=== PATIENT | female | born 1960 | race Caucasian/White ===

== ENCOUNTER → 2017-09-10 12:35 | Outpatient (CLI) | payer OTHER, SELFPAY ==
[2017-09-10 14:11] LABS: Absolute Lymphocyte Count 1.73 X10^3/ul (0.83-4.51); Basophil# 0.03 X10^3/uL; Basophil% 0.5 % (0-1); Eosinophil# 0.06 X10^3/uL; Hemoglobin 13.9 g/dl (12.0-15.0); Lymphocyte # 1.73 X10^3/ul (4.0); Lymphocyte % 28.1 % (19-41); Mean Corp Hgb Conc 33.1 g/gl (32-36); Mean Corpuscular Hgb 29.6 pg (27.0-32.0); Mean Corpuscular Volume 89.4 fL (81-99); Mean Platelet Vol. 10.2 fl (6.2-12.0); Monocyte# 0.36 X10^3/uL; Monocyte% 5.8 % (0-10); Neutrophil # 3.97 X10^3/uL (2.7-7.7); Neutrophil % 64.4 % (47-70); Platelet Count 190 K/mm3 (150-450); RBC Distribution Width CV 12.4 % (11.6-14.6); RBC Distribution Width SD 40.2 fl (35.1-43.9); White Blood Count 6.2 K/mm3 (4.4-11.0)
[2017-09-10 14:13] LABS: POSITIVE COUNT NO; POSITIVE DIFFERENTIAL NO; POSITIVE MORPHOLOGY NO
[2017-09-10 14:31] LABS: ALB/GLOB Ratio 1.1 RATIO (0.9-2.4); AST(SGOT) 16 U/L (15-37); Alanine Aminotransfer ALT/SGPT 35 U/L (13-56); Albumin, Serum 3.8 g/dL (3.2-5.0); Alkaline Phosphatase 91 U/L (45-117); Anion Gap 6 (5-15); BUN 14 mg/dL (7-18); BUN/Creat Ratio 20.5 RATIO (10-20); Calcium,Total 8.5 mg/dL (8.5-10.1); Chloride 108 mmol/L (98-107); Creatinine, Serum 0.68 mg/dL (0.55-1.02); EST Glomerular Filtration Rate 95 mL/min (>60); Est Glom Filt Rate - Afr Amer 115 mL/min (>60); Globulin 3.4 g/dL (2.2-4.2); Glucose 77 mg/dL (74-106); Magnesium 2.2 mg/dL (1.6-2.6); Potassium 3.8 mmol/L (3.5-5.1); Protein, Total 7.2 g/dL (6.4-8.2); Sodium Level 141 mmol/L (136-145); Thyroid Stim Hormone (TSH) 0.03 uIU/mL (0.358-3.74)
[2017-09-10 14:32] LABS: T4 Free Direct 1.41 ng/dL (0.76-1.46)
== END ==
PROVIDERS: Family Provider Family Medicine; PCP Family Medicine; Visit Provider Family Medicine
DX: E03.9 Hypothyroidism, unspecified (principal); R00.2 Palpitations
CPT/HCPCS: 36415; 80053; 83735; 84439; 84443; 84481; 85025

== ENCOUNTER → 2018-05-27 08:52 | Outpatient (CLI) | payer OTHER, SELFPAY ==
[2018-05-27 09:25] LABS: Absolute Lymphocyte Count 1.41 X10^3/ul (0.83-4.51); Absolute Neutrophil Count 2.3 X10^3/uL (2.0-7.7); Basophil# 0.04 X10^3/uL; Eosinophil# 0.08 X10^3/uL; Eosinophils% 1.9 % (0-5); Hematocrit 44.4 % (37-47); Hemoglobin 14.4 g/dl (12.0-15.0); Lymphocyte # 1.41 X10^3/ul (4.0); Lymphocyte % 34.3 % (19-41); Mean Corp Hgb Conc 32.4 g/gl (32-36); Mean Corpuscular Hgb 30.3 pg (27.0-32.0); Mean Corpuscular Volume 93.5 fL (81-99); Mean Platelet Vol. 9.9 fl (6.2-12.0); Monocyte# 0.24 X10^3/uL; Monocyte% 5.8 % (0-10); Neutrophil # 2.33 X10^3/uL (2.7-7.7); Neutrophil % 56.8 % (47-70); Platelet Count 177 K/mm3 (150-450); RBC Distribution Width CV 12.6 % (11.6-14.6); RBC Distribution Width SD 42.3 fl (35.1-43.9); Red Blood Count 4.75 M/mm3 (4.2-5.4); White Blood Count 4.1 K/mm3 (4.4-11.0)
[2018-05-27 09:28] LABS: POSITIVE COUNT NO; POSITIVE DIFFERENTIAL NO; POSITIVE MORPHOLOGY NO
[2018-05-27 11:04] LABS: Vitamin B12 > 2000 pg/mL (211-911); Vitamin D,25 Hydroxy 30.3 ng/mL (29.95-100.01)
[2018-05-27 11:05] LABS: Anion Gap 8 (5-15); BUN 15 mg/dL (7-18); BUN/Creat Ratio 19.3 RATIO (10-20); Calcium,Total 8.7 mg/dL (8.5-10.1); Chloride 108 mmol/L (98-107); Cholesterol 186 mg/dL (200); Creatinine, Serum 0.78 mg/dL (0.55-1.02); EST Glomerular Filtration Rate 82 mL/min (>60); Est Glom Filt Rate - Afr Amer 99 mL/min (>60); Glucose 79 mg/dL (74-106); High Density Lipoprotein 86 mg/dL; Potassium 4.1 mmol/L (3.5-5.1); Sodium Level 146 mmol/L (136-145); T4 Free Direct 0.99 ng/dL (0.76-1.46); Thyroid Stim Hormone (TSH) 3.97 uIU/mL (0.358-3.74); Triglycerides 60 mg/dL; Very Low Density Lipoprotein 12 mg/dL (5-40)
== END ==
PROVIDERS: Family Provider Family Medicine; PCP Family Medicine; Referring Provider Family Medicine; Visit Provider Family Medicine
DX: Z00.00 Encounter for general adult medical examination without abnormal findings (principal); E53.8 Deficiency of other specified B group vitamins; E03.9 Hypothyroidism, unspecified
CPT/HCPCS: 36415; 80048; 80061; 82306; 82607; 82746; 84439; 84443; 85025

== ENCOUNTER → 2020-10-01 08:16 | Outpatient (CLI) | payer OTHER, SELFPAY ==
[2020-10-01 09:05] LABS: Hematocrit 42.9 % (37-47); Hemoglobin 14.1 g/dL (12.0-15.0)
[2020-10-01 09:29] LABS: Vitamin B12 > 2000 pg/mL (211-911)
[2020-10-01 10:21] LABS: Cholesterol 204 mg/dL (200); Creatinine, Serum 0.74 mg/dL (0.55-1.02); EST Glomerular Filtration Rate 85 mL/min (>60); Est Glom Filt Rate - Afr Amer 103 mL/min (>60); High Density Lipoprotein 109 mg/dL; T4 Free Direct 0.92 ng/dL (0.76-1.46); Thyroid Stim Hormone (TSH) 2.68 uIU/mL (0.358-3.74); Triglycerides 30 mg/dL; Very Low Density Lipoprotein 6 mg/dL (5-40)
== END ==
PROVIDERS: PCP Family Medicine; Referring Provider Family Medicine; Visit Provider Family Medicine
DX: Z00.00 Encounter for general adult medical examination without abnormal findings (principal); E03.9 Hypothyroidism, unspecified; E53.8 Deficiency of other specified B group vitamins
CPT/HCPCS: 36415; 80061; 82565; 82607; 82746; 84439; 84443; 85014; 85018

== ENCOUNTER → 2021-09-30 | Outpatient (CLI) | payer OTHER, SELFPAY | END | disposition home or self-care (01) | LOC: LABSPEC 10:02 | PROVIDERS: PCP Family Medicine; Referring Provider Family Medicine; Visit Provider Family Medicine | DX: Z20.822 Contact with and (suspected) exposure to COVID-19 (principal) | CPT/HCPCS: 87635; U0003; U0005 ==

== ENCOUNTER → 2021-10-02 | Outpatient (CLI) | payer OTHER, SELFPAY ==
[2021-10-02 16:42] LABS: Vitamin B12 421 pg/mL (211-911)
== END | disposition home or self-care (01) ==
PROVIDERS: PCP Family Medicine; Visit Provider Family Medicine
DX: Z00.00 Encounter for general adult medical examination without abnormal findings (principal); E53.8 Deficiency of other specified B group vitamins; E03.9 Hypothyroidism, unspecified
CPT/HCPCS: 36415; 82607; 84443

== ENCOUNTER 2021-12-14 14:27 | Emergency (ER) | payer OTHER, SELFPAY ==
[2021-12-14 14:28] VITALS: BP 106/73; PULSE 76; RESP 16; TEMP 36.4; O2SAT 100; BMI 19.3
--- NOTE | 2021-12-14 16:03 | EX.ED.VIS.EY ---
HPI History of Present Illness Chief Complaint: Eye Problem Informant: patient Associated Symptoms History of injury: No Visual correction: None Narrative Narrative: Patient with a couple of sore red areas on her right scalp and now her right upper face/upper eyelid. This started yesterday and is worse today. No injury, no obvious reason for this, no topicals to this area. They are sore and painful, there is no pruritus. states they are outside a lot, and wondering if this could be something related to that. She denies any eye pain or vision changes or excess tearing, and no ear pain or symptoms. No fevers or chills or other systemic symptoms. PFSH PFSH no medical history Home Medications cephalexin 500 mg capsule 500 mg PO Q6 #28 CAPSULES 12/14/21 [Rx Last Taken Unknown] valacyclovir 1 gram tablet 1,000 mg PO TID #21 tabs 12/14/21 [Rx Last Taken Unknown] Allergy/AdvReac Type Severity Reaction Status Date / Time dust Allergy Rash Uncoded 12/14/21 14:30 Social History Smoking Status: Never smoker ROS ROS ED Constitutional Constitutional ED: Denies fever(s) Eyes Eyes: Denies blurry vision, change in vision or diplopia ENT ENT ED: Reports as per HPI, facial pain and other Details: scalp pain ; Denies ear pain, mouth pain, rhinorrhea or sore throat Cardiovascular Cardiovascular: Denies chest pain or palpitations Respiratory/Chest Respiratory/Chest: Denies cough or dyspnea Gastrointestinal Gastrointestinal: Denies abdominal pain, nausea or vomiting Integumentary Reports rash; Denies abscess Neurologic Neurologic: Denies headache(s), paresthesias or weakness EXAM Physical Exam Const Vital Signs: 12/14/21 14:28 Temperature 97.5 F L Temperature Source Temporal Pulse Rate 76 Respiratory Rate 16 Blood Pressure 106/73 Blood Pressure Mean 84 Pulse Ox 100 Oxygen Delivery Method Room Air Positive well nourished and well developed General Appearance ED: well developed and NAD HEENT HEENT Narrative: Several tender erythematous lumps/raised lesions. Mildly tender. In V1 distribution of ophthalmologic nerve, progressing into right parietal scalp. No external ear or canal involvement. No gross abnormality of the right eye. Eyes Eyes Narrative: PERRL, EOMI. Normal conjunctive a bilaterally. Lids normal bilaterally, no hordeolum. Neck no lymphadenopathy Resp normal respiratory effort Neuro oriented x3, CN's II-XII intact bilaterally, moves all extremities, no sensory deficits noted and gait normal Skin Skin Narrative: Several raised erythematous mildly tender lumps right scalp and into right forehead, at the junction of the lateral facial skin and the upper eyelid but it does not involve the eyelid proper. 1 of these lesions in the scalp has some mild scabbing on it. No abscess. No pustules or vesicles. No petechia or purpura. No bullae. MDM MDM MDM Narrative Medical decision making narrative: My suspicion is that this is zoster. She had chickenpox when she was small and she has not had the shingles vaccine. She asked me if stress could cause this. She does not have an obvious cause, so I am covering her with antibiotics because this is early, I do not think this is fungal, I am prescribing her valacyclovir as well but not prednisone. She understands all this and will follow-up. Discharge Plan Triage Chief Complaint: Eye Problem ED Provider: Kenji Caro Dx/Rx/DC Orders Clinical Impression: Shingles Instructions: ED Shingles (Herpes Zoster) Prescriptions: New valacyclovir 1 gram tablet 1,000 mg PO TID Qty: 21 0RF cephalexin [cephalexin] 500 mg capsule 500 mg PO Q6 Qty: 28 0RF Primary Care Provider: Mani Starr Referrals: Mani Starr MD [Primary Care Provider] - 3-5 Days if not improving (for reevaluation) Sixto Sanderson MD [Med Staff - Active Staff] - As Needed (If you start having any eye pain or vision problems, make an appointment with this journeyman patternmaker for further evaluation, as this would more likely be a version of shingles that could affect your eye) Disposition Disposition: Home, Self Care
[2021-12-14] MEDS: Acyclovir 800 MG Tablet PO (16:32)
[2021-12-14] MEDS: Cephalexin 250 MG Capsule 500 MG PO (16:32)
== END 2021-12-14 16:43 | disposition home or self-care (01) ==
PROVIDERS: Emergency Provider Emergency Medicine; PCP Family Medicine; Visit Provider Emergency Medicine
DX: B02.9 Zoster without complications (principal)
CPT/HCPCS: 99284

== ENCOUNTER 2022-01-22 13:36 | Emergency (ER) | payer OTHER, SELFPAY ==
[2022-01-22 13:37] VITALS: BP 119/79; PULSE 89; RESP 14; TEMP 36.8; O2SAT 100; BMI 19.5
--- NOTE | 2022-01-22 13:54 | EX.ED.DYSGE1 ---
HPI History of Present Illness Chief Complaint: Anxiety Narrative Narrative: 61-year-old female presenting with anxiety. She states has had it for the past month since having shingles recently. She was not on any steroids that she knows of she finished of course of valacyclovir and Keflex for this. She is on hydroxyzine currently from her primary care physician to help with her anxiety. She states that it was getting bad earlier and if she arrived to the ER her primary care physician's nurse called her and stated they will get a call something else in for her. She does not know what this is. She has taken her hydroxyzine as prescribed. She states she does not have a history of anxiety in the past. She denies chest pain or shortness of breath. She denies fever, chills, cough. PFSH PFSH Home Medications hydroxyzine HCl 25 mg tablet 25 mg PO TID PRN PRN Anxiety 01/22/22 [History Last Taken Unknown] Allergy/AdvReac Type Severity Reaction Status Date / Time dust Allergy Rash Uncoded 01/22/22 13:37 Surgical History Hx of tonsillectomy Social History Smoking Status: Never smoker ROS ROS ED Constitutional Constitutional ED: Denies chills or fever(s) Eyes Eyes: Denies change in vision ENT ENT ED: Denies rhinorrhea or sore throat Cardiovascular Cardiovascular: Denies chest pain or palpitations Respiratory/Chest Respiratory/Chest: Denies cough or dyspnea Gastrointestinal Gastrointestinal: Denies abdominal pain or constipation Genitourinary Genitourinary ED: Denies dysuria or hematuria Musculoskeletal Musculoskeletal: Denies arthralgias or back pain Integumentary Denies abscess or Abrasions Neurologic Neurologic: Denies headache(s) or paresthesias Psychiatric Psychiatric: Reports anxiety; Denies depression, suicidal ideation or suicidal thoughts EXAM Physical Exam Const Vital Signs: 01/22/22 13:37 Temperature 98.2 F Temperature Source Temporal Pulse Rate 89 Respiratory Rate 14 Blood Pressure 119/79 Blood Pressure Mean 92 Pulse Ox 100 Oxygen Delivery Method Room Air Positive well nourished General Appearance ED: NAD; Negative for pallor HEENT Reports moist mucous membranes Eyes PERRL and EOMs intact bilaterally Neck no lymphadenopathy Chest Wall inspection of chest normal and palpation of chest normal Resp normal respiratory effort Auscultation: Negative for rales, rhonchi or wheezes Cardio regular rate and regular rhythm GI normal to inspection, nondistended, normoactive bowel sounds Auscultation: normoactive bowel sounds Extremity normal to inspection Neuro oriented x3 and CN's II-XII intact bilaterally Sensorium / Orientation: alert Psych mental status grossly normal Skin no rashes or lesions noted and no wounds General Skin Exam: Negative for jaundice or pallor MDM MDM MDM Narrative Medical decision making narrative: Patient presenting with anxiety. This is a known diagnosis. She was treated with either PCP with hydroxyzine 25 mg p.o. 3 times daily. She states is not helping. On arrival she had a call from her primary care physician's nurse saying that they called her something in. I spoke with Dr. Mani Starr who states she called her in [place] with tapering doses and he recommended her to start that. I do not believe she needs anything acutely. She is amenable to this plan. She is discharged stable condition. Impression: 1. Anxiety Lab Data Attestation: I reviewed the patient's lab results. Discharge Plan Triage Chief Complaint: Anxiety ED Provider: Boone Tong Dx/Rx/DC Orders Instructions: ED Anxiety Reaction Prescriptions: No Action hydroxyzine HCl 25 mg tablet 25 mg PO TID PRN PRN (Reason: Anxiety) Primary Care Provider: Mani Starr Referrals: Mani Starr MD [Primary Care Provider] - Disposition Disposition: Home, Self Care
--- NOTE | 2022-01-22 14:29 | CM.ED ---
SW Note Referral Source: Case Find Referral Reason: Anxiety SW met with patient and her family members in the room. Patient gave this editorial writer verbal consent to speak to her in the presence of her family. SW provided patient with list of counseling agencies and information on [facility] PHP/IOP program. Patient provided with PHP/IOP brochure. No further issues or concerns voiced. Family did not voice any additional issues or concerns. SW remains available if further needs arise. Plan: Home with Resources Manuela ANGULO
== END 2022-01-22 14:38 | disposition home or self-care (01) ==
PROVIDERS: Emergency Provider Student in an Organized Health Care Education/Training Program; PCP Family Medicine; Visit Provider Student in an Organized Health Care Education/Training Program
DX: F41.9 Anxiety disorder, unspecified (principal); Z79.899 Other long term (current) drug therapy
CPT/HCPCS: 99282

== ENCOUNTER → 2022-02-05 | Outpatient (CLI) | payer OTHER, SELFPAY ==
[2022-02-05 15:13] LABS: Absolute Lymphocyte Count 0.98 X10^3/uL (0.83-4.51); Absolute Neutrophil Count 3.8 X10^3/uL (2.0-7.7); Basophil# 0.04 X10^3/uL; Basophil% 0.8 % (0-1); Eosinophil# 0.03 X10^3/uL; Eosinophils% 0.6 % (0-5); Hematocrit 43.9 % (37-47); Hemoglobin 14.2 g/dL (12.0-15.0); Lymphocyte # 0.98 X10^3/ul (0.83-4.51); Lymphocyte % 18.8 % (19-41); Mean Corp Hgb Conc 32.3 g/dL (32-36); Mean Corpuscular Hgb 31.2 pg (27.0-32.0); Mean Corpuscular Volume 96.5 fL (81-99); Mean Platelet Vol. 10.2 fl (6.2-12.0); Monocyte# 0.37 X10^3/uL; Monocyte% 7.1 % (0-10); NRBC Flagged by Analyzer 0 % (0-5); Neutrophil # 3.76 X10^3/uL (2.7-7.7); Neutrophil % 72.3 % (47-70); Platelet Count 224 K/mm3 (150-450); RBC Distribution Width CV 13.2 % (11.6-14.6); RBC Distribution Width SD 47.5 fl (35.1-43.9); Red Blood Count 4.55 M/mm3 (4.2-5.4); White Blood Count 5.2 K/mm3 (4.4-11.0)
[2022-02-05 15:27] LABS: Vitamin B12 852 pg/mL (211-911)
[2022-02-05 17:02] LABS: ALB/GLOB Ratio 1.1 RATIO (0.9-2.4); AST(SGOT) 20 U/L (15-37); Alanine Aminotransfer ALT/SGPT 43 U/L (13-56); Albumin, Serum 3.8 g/dL (3.2-5.0); Alkaline Phosphatase 78 U/L (45-117); Anion Gap 7 (5-15); BUN 13 mg/dL (7-18); BUN/Creat Ratio 19.2 RATIO (10-20); Chloride 102 mmol/L (98-107); Creatinine, Serum 0.68 mg/dL (0.55-1.02); EST Glomerular Filtration Rate 95 mL/min (>60); Est Glom Filt Rate - Afr Amer 114 mL/min (>60); Folates, (Folic Acid) > 100.00 ng/mL (3.1-55.4); Globulin 3.5 g/dL (2.2-4.2); Glucose 88 mg/dL (74-106); Potassium 3.9 mmol/L (3.5-5.1); Protein, Total 7.3 g/dL (6.4-8.2); Sodium Level 137 mmol/L (136-145); T4 Free Direct 1.36 ng/dL (0.76-1.46); Thyroid Stim Hormone (TSH) 3.47 uIU/mL (0.358-3.74)
== END | disposition home or self-care (01) ==
LOC: MTLAB 12:57
PROVIDERS: PCP Family Medicine; Referring Provider Family Medicine; Visit Provider Family Medicine
DX: F41.9 Anxiety disorder, unspecified (principal); E03.9 Hypothyroidism, unspecified; E53.8 Deficiency of other specified B group vitamins
CPT/HCPCS: 36415; 80053; 82607; 82746; 84439; 84443; 85025

== ENCOUNTER → 2022-02-27 | Outpatient (CLI) | payer OTHER, SELFPAY ==
[2022-03-02 17:07] LABS: Anti-Centromere B Ab <0.2 AI (0.0-0.9); Anti-Chromatin <0.2 AI (0.0-0.9); Anti-Jo <0.2 AI (0.0-0.9); Anti-Scleroderma-70 AB <0.2 AI (0.0-0.9); RNP Ab <0.2 AI (0.0-0.9); SJOGREN'S Anti-SS-A test < 0.2 AI (0.0-0.9); SJOGREN'S Anti-SS-B test < 0.2 AI (0.0-0.9); Smith Ab <0.2 AI (0.0-0.9)
[2022-03-02 20:43] LABS: Anti-dsDNA Ab 1 IU/mL (0-9)
[2022-03-03 22:06] LABS: Cytoplasmic Ab (C-ANCA) <1:20 titer (Neg:<1:20); Lyme IgG P18 Ab Absent (.); Lyme IgG P23 Ab Absent (.); Lyme IgG P28 Ab Absent (.); Lyme IgG P30 Ab Absent (.); Lyme IgG P39 Ab Absent (.); Lyme IgG P41 Ab Present (.); Lyme IgG P45 Ab Absent (.); Lyme IgG P58 Ab Absent (.); Lyme IgG P66 Ab Absent (.); Lyme IgG P93 Ab Absent (.); Lyme IgM P23 Ab Absent (.); Lyme IgM P39 Ab Absent (.); Lyme IgM P41 Ab Absent (.)
[2022-03-04 09:32] LABS: Lyme IgG WB Interpretation Negative (.); Lyme IgM WB Interpretation Negative (.); Perinuclear Ab (P-ANCA) <1:20 titer (Neg:<1:20)
== END | disposition home or self-care (01) ==
LOC: MTLAB 13:51
PROVIDERS: PCP Family Medicine; Referring Provider Family Medicine; Visit Provider Family Medicine
DX: T14.90XA Injury, unspecified, initial encounter (principal); W57.XXXA Bitten or stung by nonvenomous insect and other nonvenomous arthropods, initial encounter
CPT/HCPCS: 36415; 86140; 86225; 86235; 86256; 86617

== ENCOUNTER 2022-03-12 08:00 | Outpatient (RCR) | payer OTHER, SELFPAY ==
--- NOTE | 2022-03-12 10:10 | BH.SGPN.GN ---
Behaviors/Verbalizations/Mental Status: [] Eye contact is good. Motor activity is appropriate. Appearance is casual. Speech is Appropriate. Mood is anxious. Affect is constricted. Thoughts are linear and logical. No evidence of psychosis. Client Response/Progress/Benefit: [] Pt was an active participant in group discussion and activity. Attentive during psychoeducation. Along with peers was able to identify barriers to taking action on her mental health which included: fear of failure, the unknown, change, one's environment, past negative experiences, being passive, and fear of vulnerability. Identified several symptoms and stressors that she feels are holding her back from progress such as envy of where others are at in life, anxiety, fear, isolation, and desire of wanting to be normal again. Benefited from increased self-awareness of obstacles. Will continue in IOP to improve daily functioning, decrease anxiety, and prevent decompensation.
--- NOTE | 2022-03-12 11:15 | BH.SGPN.GN ---
Behaviors/Verbalizations/Mental Status: []Client alert and oriented, casually dressed and groomed. Eye contact good. Motor activity appropriate. Speech within normal limits. Affect constricted, mood anxious. Thoughts linear, logical, no signs of hallucinations or delusions. Client Response/Progress/Benefit: []Client responded well to session, taking notes and participating in worksheet discussion. Client connected with the zones of action/change and reported that making sustainable change comes from stepping out of one?s comfort zone into the learning zone. Client set a goal to gain control over her negative thinking. Client reported her goal is to identify a positive affirmation every morning when she wakes up. Client identified setting alarm, list benefits of goal, and list consequences of not accomplishing goal as supports to help her accomplish goal. Appeared to benefit from identifying a small goal to benefit mental health. Will continue IOP tx to increase healthy coping, decrease anxiety, and prevent decompensation.
--- NOTE | 2022-03-17 09:05 | BH.SGPN.GN ---
Behaviors/Verbalizations/Mental Status: [] Eye contact is good. Motor activity is appropriate. Appearance is casual. Speech is Appropriate. Mood is euthymic. Affect is full. Thoughts are linear and logical. No evidence of psychosis. Reviewed daily check in sheet and no reports of suicidal ideations or intent. Client Response/Progress/Benefit: [] Pt participated at times during the group discussions. Attentive. Mental health wins were that she worked 3 days this week which she had not been able to accomplish since 11/2021 due to her anxiety. Reports her anxiety has decreased which had made her more comfortable with being alone. Increased energy and decreased isolation. States it has been a welcome break from her anxiety which was impacting her quite extensively. Stressor is that due to neck/back pain she has not been sleeping well. Lack of sleep was a significant contributor to her anxiety in the past and she is fearfull if she doesn't return to normal sleep routine her anxiety will return. Benefited from group support, encouragment, and feedback. Will continue in IOP to maintain gains, prevent decompensation, and to increase healthy coping. Narrative Note: []
--- NOTE | 2022-03-17 10:15 | BH.SGPN.GN ---
Behaviors/Verbalizations/Mental Status: []Pt alert and oriented, neatly dressed and groomed. Eye contact good. Motor activity appropriate. Speech within normal limits. Affect congruent, mood euthymic. Thoughts linear, logical, no signs of hallucinations or delusions. Client Response/Progress/Benefit: []Pt participated in group discussion. Group worked together to identify benefits of healthy relationships which included improves mental health, encouragement, motivation, accountability, validation, connection, someone to share experiences with, and support during challenges. Group identified factors that lead to unhealthy relationships which included financial stress, lack of communication, and different values.?Actively participated in group experiential activity and provided occasional feedback. Benefited from increased insight and awareness of benefits of healthy relationships and factors that contribute to unhealthy relationships. Will continue in IOP to increase knowledge of healthy coping skills to manage anxiety and improve daily functioning. Narrative Note: []
--- NOTE | 2022-03-17 11:10 | BH.SGPN.GN ---
Behaviors/Verbalizations/Mental Status: [] Client alert and oriented, casually dressed and groomed. Eye contact fair. Motor activity appropriate. Speech within normal limits. Affect congruent, mood anxious. Thoughts linear, logical, no signs of hallucinations or delusions. Client Response/Progress/Benefit: [] Client responded well to session, engaged and taking notes. work with small group to identify characteristics of healthy and unhealthy relationships. Attentive during psychoeducation and discussion about characteristics of healthy, unhealthy, and abusive relationships. Client reported an area she would like to work on is being more communicative within her marriage. Client stated one way she can do this is to start asking her how his day went. Appeared to benefit from identifying areas she wants to work on to build healthier relationships. Pt recommended to continue IOP tx to increase healthy coping, challenge negative thinking, and prevent decompensation.
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
[2022-03-18 09:08] VITALS: BP 111/60; PULSE 70
--- NOTE | 2022-03-18 10:05 | BH.SGPN.GN ---
Behaviors/Verbalizations/Mental Status: []Eye contact is good. Motor activity is appropriate. Appearance is casual. Speech is Appropriate. Mood is anxious and euthymic. Affect is congruent. Thoughts are linear and logical. No evidence of psychosis. Client Response/Progress/Benefit: []Pt participated during the group discussion. Attentive during psychoeducation and actively engaged during experiential activity. Participated during interactive discussion on aspects of fixed mindset. Group identified several aspects of fixed mindset which included; inflexible, belief that one cannot grow, absolute thinking, and all of one's skills, traits, and behaviors are set in stone and can't change. Pt did well in experiential activity in which they were given a seemingly impossible task and were asked to identify fixed thoughts that arose. Group then identified personal examples of fixed thinking in which pt opted not to share with the group. Pt is still new to IOP tx and adjusting to sharing personal thoughts and feelings in the group setting. Benefited from increased understanding of personal fixed mindsets and how they can impact mental health. Will continue in IOP to prevent decompensation, continue to improve anxiety management, and promote self-care. Narrative Note: []
--- NOTE | 2022-03-18 11:58 | BH.MDN_ITS ---
Multi-Disciplinary Note - Note 30-min Individual Time Started:: 11:15 Date: 03/18/22 Purpose of session/treatment goals addressed:: Used the session to review current symptom and progress. Identified goals for treatment. Eye Contact:: Good Motor Activity:: Appropriate Appearance:: Casual Speech:: Appropriate Mood:: Anxious Affect:: Congruent Thoughts:: Linear, Logical, No evidence of hallucinations/delusions noted Staff Interventions:: CBT techniques, goal setting Client Response:: Met with patient to review progress and begin to work on treatment plan. Pt entered [facility] due to severe anxiety which was impacting her functioning since 11/2021. She presented to [facility] ER on 01/22/22 due to her anxiety. After visit to the ER she began to see outpatient psychiatrist and therapist with limited improvement therefore was recommended to [facility]. During pre- admission screening she reported frequent panic attacks, significant rumination, restlessness, poor sleep (2 hours a night), isolation, avoidance, anhedonia, no pleasure in activities, and constant feelings of dread. Survival ambivalence. This is pt's 3rd day in [facility] and she reports I'm learning a lot. Her primary concern today is her sleep. She spoke with psychiatrist this AM and some medication changes were made in hopes this will help. Reports improved anxiety in the past few weeks. Unable to identify any specific changes that she made stating I'm just keeping busy. Identified lack of sleep as one of the primary reasons she had sustained anxiety for several months, was unable to function, had passive thoughts of , and was unable to be alone. She believes that the trigger to poor sleep and increased anxiety was a medication for shingles. Fearful that due to current struggles with sleep she will decompensate. Her goals for IOP include learning skills to increase communication with spouse, increase coping skills for anxiety and depression, and to learn more about how thoughts effect emotions/behaviors. She was receptive to psychoeducation on cognitive distortions. Risks/Concerns:: no risks or concerns noted. Progress Toward Goals/Plan:: Pt reports decreased symptoms and improved functioning over the past 2 weeks due to keeping busy. Reports that her energy, motivation, concentration, and focus have improved which has led to returning to work and well as other tasks which help her mood (i.e. reading). Some fear that she will decompensate due to some recent sleep struggles. Noted improvement in symptoms in the past few weeks, however would benefit from continued treatment in IOP level of care to prevent decompensation, maintain gains, and to increase healthy coping skills. Time Stopped:: 11:45
--- NOTE | 2022-03-18 11:58 | BH.PSA ---
Source of Information - Presenting Problems/Circumstances Problems, Referral Source, Mental Status, Client: Referred by [facility] ER after presenting due to mental health crisis on 01/22/22. Pt reports worsening anxiety and depression since 11/2021 which included panic attacks, inability to function, isolation, and survival ambivalence. Psychiatric Presentation - Psych Issues & Need for Admission Psychiatric Issues:: Anxiety, panic attacks, depression, hopelessness, Past Psychiatric History - MH Treatment Hx Treatment History: Dr. Riggs- psychiatrist, started seeing him in 01/2022. Dr. Leighann Georges- psychologist, started seeing her in 01/2022 First hospitalization:: Nx of hospitalizations Most recent hospitalization:: refer above Medication Trials:: No ECT Therapy:: No Age of first mental health symptoms: Pt reports hx of mild anxiety for most of her life Describe (age, circumstance, etc) any past hospitalizations: n/a Current providers for mental health treatment (counselor, psychiatrist, case making machine operator, etc.): Dr. Riggs- psychiatrist, [facility]. Dr. Leighann Georges- psychologist, [facility] Development & Family of Origin - Childhood Significant Childhood Events: none reported - Family Who currently lives in your home?: Currently lives with her of 29 years. Describe family composition:: She has 3 brothers and two sisters (pt is the youngest). Both of her parents are . She has no children - Family History Family History: Family History (Last Reviewed 03/26/22 @ 09:26 by Carolin Lei) Father Depression Ethnicity - Culture Do you identify yourself with any particular cultural, ethnic background, or community?: No - Sexuality Sexual Orientation: Heterosexual Spirituality - Sabianism Do you currently identify with any organized pentecostal?: Muslim - Beliefs Is there a particular form of support from this community you can use for your recovery?: Yes Mental Status - Memory Recent Memory: Fair Remote Memory: Fair - Concentration Concentration: Fair - Eye Contact Eye Contact: Good - Speech Speech: Articulate - Thought Process Thought Process: Logical Insight: Fair Judgment: Fair - Orientation Orientation: Time, Person, Place, Situation - Appearance Appearance: Appropriate - Mood Mood: Anxious - Affect Affect: Alert Suicide Assessment - Suicidal Ideation Have you ever felt like hurting yourself?: No Please explain:: pt reports passive thoughts of and survival ambivalence. Denies any hx of suicidal ideations, plan, or intent. Were you using ETOH/drugs at the time?: No Suicidal Intentional Rating Scale (SIRS): No suicidal thoughts (past or present) Physician Notification: If Active suicidal thoughts/Will not contract for safety is checked, contact physician and document in the Physician Notification section below. Violent Behavior/Abuse History - Homicidal Ideation Do you have any homicidal thoughts? If so, explain:: No Is there a known potential victim? If yes, who:: No - Abuse Have you ever been abused?: No - Life Events Describe significant life events: denies. - Safety Do you ever feel threatened in your home? 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 If yes, describe:: No - Court Orders Have you had any past court orders for psychiatric treatment?: No Do you have a present court order for psychiatric treatment?: No Problem Checklist - Current Problem Areas Problem List: Depressed mood/sad, Anxiety, Sleep problems Discharge Planning Needs - Anticipated Follow-Up Private Therapist/Psychiatrist:: Dr. Riggs- Psychiatrist Other (to be determined): Dr. Leighann Georges- psychologist Primary Care Physician: Mani Starr Family and Caregiver Contacts:: Emmett Umairangelica- Release of Information Signed:: Yes Diagnoses - Diagnoses Diagnosis #1:: Generalized Anxiety Disorder Diagnosis #2:: Panic Disorder Interpretive Summary - Interpretive Summary Interpretive Summary: Pt is a 61 year old female with recent exacerbation of anxiety since 11/2021. No previous psychiatric admissions. Referred by [facility] ER after presenting in mental health crisis on 01/22/22. Presented to the ER with significant anxiety and panic attacks which were impacting her functioning. Since that ER admission she had seen a psychiatrist and psychologist with limited benefit. During her pre-admission intake in which her was also present she reported poor sleep (less than 2 hours), poor appetite, low energy, low motivation, isolation, avoidance, hopelessness, no pleasure in activities, and anhedonia. Pt reported constant feelings of dread. Frequent panic attacks, ruminations, restlessness, and poor concentration, memory, and focus. Denied active suicidal ideations, plan, or intent. No hx of attempts. Reported passive thoughts of and survival ambivalence. Increase irritability and frustration with her anxiety and lack of progress. Denied HI or psychosis. Unable to complete tasks around the house and had not been to work due to her mental health symptoms. Family hx of depression (father). Pt's nephew completed suicide. Denies substance abuse issues. Treatment Plan Recommendations - Recommendations Guidelines: Special needs identified to be included in the development of an individualized treatment plan regarding past psychiatric history and treatment, developmental events, family relationships/events/culture, past and/or current educational, occupational, social, and residential experience, and legal status. Recommendations:: Due to mental health impacting functioning, limited benefit from traditional outpatient, passive thoughts of , and frequent panic attacks reported during pre-admission screening recommended IOP.
--- NOTE | 2022-03-18 11:59 | BH.MTP ---
[facility] Treatment Plan - Patient Information Program Physician:: Corinna Brantley Primary Therapist:: Eddie Vieira - Psychiatric Diagnoses Psychiatric Diagnoses:: 1. Generalized anxiety disorder. 2. Panic attack disorder Diagnosis Code(s):: F41.1 - Estimated LOS Estimated LOS (in weeks):: 5 Problem/Goal #1 - Problem/Goal #1 Stated Goal:: Client will reduce overall frequency, intensity, and duration of anxiety to improve functioning AEB self-report and reduction of scores on the anxiety domain of the DSM-5 cross-cutting scales. Description of Barriers: Limited coping skills and insight into triggers to panic attacks and anxiety, mental health stigma, limited support, Functional Impact: Stopped going to work, isolation, unable to complete daily tasks, and poor sleep. Goal Relevant Strengths/Supports: motivated, intelligent, appears eager to learn and gain support. - Objectives Objective #1 Stated Objective: Client will identify 2-3 cognitive distortions that lead to rumination and learn 2-3 ways to manage these thoughts to better manage anxiety as shown by reduced DSM-5 scores for anxiety Interventions: Through individual and group counseling will provide education on cognitive distortions and teach client the connection between thoughts, emotions, and feelings. Therapist will assist client in identifying, challenging, and replacing dysfunctional thoughts with positive, more realistic thoughts. Discharge Criteria: Able to identify 3 cognitive distortions that she most frequently identified and skills to challenge and reframe. Able to consistently utilize these skills to manage anxiety. Decreased scores on the DSM- 5 anxiety domain. Target Date: 04/22/22 Review Date: 04/08/22 Objective #2 Stated Objective: Client will learn and implement 2-3 calming skills to reduce overall anxiety and manage anxiety Interventions: Through individual and group counseling will teach the client calming/relaxation skills (e.g., muscle relaxation, mindful breathing) and how to discriminate better between relaxation and tension; teach the client how to apply these skills to his/her daily life. Discharge Criteria: Able to identify and consistently use coping/calming skills for acute anxiety and panic AEB self-report and decreased scores on the DSM-5 anxiety domain. Target Date: 04/22/22 Review Date: 04/08/22 Problem/Goal #2 - Problem/Goal #2 Stated Goal:: Alleviate depressive symptoms and return to previous level of effective functioning AEB reduction of scores on the DSM-5 depression domain and self-report. Description of Barriers: Limited coping skills and insight into triggers to panic attacks and anxiety, mental health stigma, limited support, Functional Impact: Significant anxiety for several months prior to admission resulted in depression, hopelessness, and passive thoughts of . Impacted motivation, energy, sleep, and ability to function at home and work. Goal Relevant Strengths/Supports: motivated, intelligent, appears eager to learn and gain support. - Objectives Objective #1 Stated Objective: Client will identify and replace 2-3 negative thinking patterns that reinforce depressive symptoms, self-hate, and negative self-talk. Interventions: Through individual and group counseling will assist client in recognizing triggers for increased self-deprecating and depressive thought patterns. Therapist will help client explore connection between thoughts, feelings, and actions and help client reframe depressive thought patterns. Discharge Criteria: Client will identify 2-3 negative thought patterns and be able to identify strategies and skills to replace, challenge, and reframe negative thought patterns. Target Date: 04/22/22 Review Date: 04/08/22
--- NOTE | 2022-03-18 12:20 | BH.PSY.EVA_ITS ---
Psychiatric Evaluation Initial Evaluation Initial Evaluation: History of Present Illness: [] The patient is a 61-year-old female with a history of anxiety and some depression since November 2021. She currently lives with her of 29 years and they have no children. Patient had worsening anxiety after she came down with shingles and took medication for this which she feels may have contributed to her anxiety. She took Keflex and valacyclovir. She had severe anxiety and went to the [facility] emergency room on January 22, 2022 and was referred to the [facility] behavioral health IOP program. At the time of her referral and on her intake the patient was unable to function well and had been unable to work in recent weeks. She had constant feelings of dread and impending doom. The patient had COVID in February 2022 and her anxiety lessened after this. In addition the patient was placed on medication 6 weeks ago and feels that the medication has improved her anxiety and her mood in the past week or so. At the time of her referral and her intake the patient described hopelessness, anhedonia, depression, decreased sleep, low energy, decreased concentration and passive thoughts of . She was ruminating negatively and was having panic attacks several times a month. She was also avoiding doing activities of daily living and was isolating herself and had low motivation. Patient does not use caffeine. She is now working part-time at a [employer] since she returned to work at the end in January 2022. She is doing well at her job now and enjoys her work. Her anxiety has improved since taking the Lexapro for the past 6 weeks and she feels her mood is now euthymic. She is now sleeping about 6 hours a night and she wakes up once during the night but is able to get back to sleep 10 minutes later. She has not had a panic attack since 1 month ago. She denies now suicidal ideation, passive thoughts of , homicidal ideation, hallucinations, delusions or symptoms of edmundo ever. Today she feels hopeful about the future. She denies OCD, eating disorder, trauma, PTSD, seizure or head head trauma. Current Psychiatric Medications: [] Lexapro 5 mg p.o. daily (x6 weeks); Remeron 15 mg p.o. nightly (x2 weeks); no Ativan taken since 1 month ago. No more hydroxyzine taken were in recent weeks. Past Psychiatric History: [] No psych admissions ever and no suicide attempts ever. She did not have any psychiatric treatment until she went to the emergency room on January 22, 2022. She has seen a psychiatrist Dr. Riggs since that visit and has had counseling. She took her first psychiatric medications in January 2022 or 6 weeks ago. She saw a counselor for 4 appointments starting in January and has been somewhat helpful and then started the IOP program. She took BuSpar also in recent months but no longer takes it. Substance Use History: [] Non-smoker. No vaping. No marijuana. No drug use. No alcohol use. Allergies: [] No known allergies Medications: [] Psych meds plus fish oil, vitamin D, B12 and a multivitamin Past Medical History: [] No medical illnesses. Tonsillectomy only. Postmenopausal with no problems and no hormonal replacement therapy. She is a 0 para 0 who has infertility. Family Psychiatric History: [] Mother at age 92 and father at age 91 in 2018. Father has history of depression and the patient has a few brothers who have depression. The patient's brother's son or her nephew completed suicide. No substance issues in the family. Personal/Social History: [] She was born and raised in [place] and describes her childhood as good. [place] lived on [place] farm and had animals. Her parents were loving. She denies any verbal, physical or sexual abuse ever. She has 3 brothers and 2 sisters and the patient is the youngest in the family and is close to her siblings. She did well in school and graduated high school and had some college. She worked at the [employer] for 32 years and then stayed home for a while and now is working part-time at a [employer] and likes this job. She returned to work in January end of January early February 2022. She got at age 31 and marriage has lasted 29 years and she has no children due to infertility. Legal History: [] Has delivery driver/customer service's license. No arrests. No DUIs. Review of Systems: [] Review of systems is negative except as noted in present illness. Vital Signs: [] Vital signs and exam were reviewed in the ER records and in the nurses notes and updated and the patient is deemed medically able to participate in the IOP program. Mental Status Examination: [] Patient is a 61-year-old female who is seen wearing a mask and is normal for stated age actually appears fit for stated age and is casually dressed and groomed with good hygiene. She is ambulatory with a normal gait and has no psychomotor agitation or retardation. She is cooperative and pleasant during the interview. Eye contact is good and speech is normal rate and rhythm and fluent with no pressure. Mood is euthymic with some anxious anxiety. Affect is full and normal. Thought process is goal- directed and organized. Thought content: There is evidence of recent passive thoughts of but there is no evidence currently of passive thoughts of , suicidal ideation, homicidal ideation, hallucinations, delusions or symptoms of edmundo. She is hopeful for the IOP program helping her deal with any anxiety issues that come up in the future. Reality testing is intact. Intelligence is average or above. Judgment is intact. Insight is fair. Impulsivity is low. Diagnoses: [] 1. Generalized anxiety disorder 2. Panic attack disorder 3. Recent health issues Plan: [] The patient will start the IOP program at [facility] as the structure, support, education and group therapy will hopefully prevent worsening of the patient's symptoms. She felt safe during the interview and if it anytime she does not feel safe she will let us know or go to the emergency room. The risks, options, possible complications and side effects of the medications were discussed with the patient and she understands and accepts these. Since the patient is concerned that she is waking up and feeling a little anxious in the middle of the night she agrees to try cutting her Remeron in half to 7.5 mg p.o. at bedtime and see if this helps her sleep. She understands that if this makes her depression or anxiety worse she can go back up to the 15 mg and discuss this with her outpatient psychiatrist when she sees him at her next visit. I will see the patient in follow-up in several weeks and she will continue to follow-up with her outpatient providers.
--- NOTE | 2022-03-18 12:30 | BH.DR.ITP ---
Initial Treatment Plan Patient Information Visit Information: ADMISSION DATE: EXPECTED LOS: 4-6 weeks Problems/Symptoms Problem #1:: Anxiety Symptom:: Worry, ruminations, avoidance, panic attacks Problem #2:: Depression Symptom:: Recent sadness, hopelessness, passive thoughts of , biological disruption of sleep and anhedonia
--- NOTE | 2022-03-19 09:00 | BH.SGPN.GN ---
Behaviors/Verbalizations/Mental Status: []Pt alert and oriented, neatly dressed and groomed. Eye contact good. Motor activity appropriate. Speech within normal limits. Affect constricted, mood euthymic. Thoughts linear, logical, no signs of hallucinations or delusions. Reviewed pt?s symptom tracker, no risk for suicidal ideation, plan, or intent as of 03/19/22 Client Response/Progress/Benefit: []Pt responded well to session, attentive and engaged. Pt reports feeling encouraged as pt continues to feel better and less anxious. Pt shared she went out with friends yesterday and they noticed she had less anxiety. Pt reports belief that she is learning valuable skills at IOP and enjoys learning from peers. Pt's stressor today is that she is still having issues with sleep which pt is not used to. Pt appeared to benefit from connecting with peers. Pt will continue IOP tx to promote long-term mood stability and increase knowledge of healthy coping skills. Narrative Note: []
--- NOTE | 2022-03-19 10:10 | BH.SGPN.GN ---
Behaviors/Verbalizations/Mental Status: [] Eye contact is good. Motor activity is appropriate. Appearance is casual. Speech is Appropriate. Mood is anxious. Affect is congruent. Thoughts are linear and logical. No evidence of psychosis. Client Response/Progress/Benefit: [] Pt participated when prompted. Attentive during psychoeducation. Attentive as peers defined locus of control and provided examples of internal and external locus of control. Attentive during interactive discussion between group members and therapist on characteristics of internal locus of control which included; takes responsibility for actions, less influenced by others and increased confidence. Attentive as peers identified external locus of control characteristics which included; others have more influence and control, decreased motivation to make changes if one believes that mood/thoughts/self-esteem are based on others. Active and engaged during experiential activity and was able to see correlations between activity and emotions/perspectives associated with internal vs external locus of control. Benefited from increased insight and awareness of internal vs external locus of control and how this could impact mental health. Will continue in IOP to prevent decompensation, increase healthy coping, improve functioning, and stabilize mood. Narrative Note: []
--- NOTE | 2022-03-19 11:05 | BH.SGPN.GN ---
Behaviors/Verbalizations/Mental Status: []Client alert and oriented, casually dressed and groomed. Eye contact good. Motor activity appropriate. Speech within normal limits. Affect constricted, mood anxious. Thoughts linear, logical, no signs of hallucinations or delusions. Client Response/Progress/Benefit: []Client responded well to session, actively engaged during psychoeducation on circles of control including areas in which we have control, some influence, or concern but no control over in daily life. Client completed a worksheet in which they identified what areas their own current stressors may fall into. Client identified having most control over: their willingness to care for their physical health needs, their attitude, and decision to remain restoration; some control over: their finances, sleep, ?s health and their communication; and no control over: social media, food prices, and the weather. Group then worked together on identifying steps to begin using an internal locus of control when addressing current stressors. Client identified wanting to focus on effectively maintaining a healthy sleep schedule. Noted plans to do so by allowing herself to nap when tired and do less around the house on days she is more fatigued as well. Client will continue IOP tx to improve mood stability, maintain healthy skill application, and prevent decompensation. Narrative Note: []
--- NOTE | 2022-03-24 09:05 | BH.SGPN.GN ---
Behaviors/Verbalizations/Mental Status: [] Eye contact is good. Motor activity is appropriate. Appearance is casual. Speech is Appropriate. Mood is anxious. Affect is congruent. Thoughts are linear and logical. No evidence of psychosis. Reviewed daily check in sheet and no reports of suicidal ideations or intent. Client Response/Progress/Benefit: [] Pt participated at times during the group discussion. Attentive. Emotion for today is appreciative. Shared that she did not visit family this weekend due primarily to the weather, however she did meet with her neighbor which was helpful. Spent the weekend home alone with her . Some isolative and avoidance however she stated I needed this. Reports that she was able to read and her anxiety did not get bad. It does not appear that her avoidance and isolation from family was related to her mood (anxiety). Her sleep continues to be erratic which causes some fear of decompensation. Benefited from group support, encouragment, and feedback. Will continue in IOP to maintain gains, increase healthy coping skills, and to improve functioning. Narrative Note: []
--- NOTE | 2022-03-24 10:10 | BH.SGPN.GN ---
Behaviors/Verbalizations/Mental Status: []Pt alert and oriented, neatly dressed and groomed. Eye contact good. Motor activity appropriate. Speech within normal limits. Affect congruent, mood euthymic. Thoughts linear, logical, no signs of hallucinations or delusions. Client Response/Progress/Benefit: []Attentive during psychoeducation on SMART (Specific, Measurable, Achievable, Realistic, Timely) goals AEB by note-taking. Attentive during group discussion on benefits to setting goals which group identified as; reduced anxiety, increased motivation, better relationships, and increase confidence. Pt identified obstacles to setting/completing goals which included; procrastination, mental health, believing they are too difficult, procrastination, self-doubt, and poor time management. Engaged during activity and was able to relate the activity to goal-setting topic. Benefited from increased awareness on benefits to goal-setting, obstacles to developing and following through with a goal, and strategies for setting goals. Will continue in IOP to promote gains, further improve mood stability, and reinforce healthy coping skills. ?? Narrative Note: []
--- NOTE | 2022-03-24 11:10 | BH.SGPN.GN ---
Behaviors/Verbalizations/Mental Status: []Eye contact good. Alert and oriented. Motor activity is appropriate. Appearance is casual, grooming appropriate. Speech Appropriate. Mood is anxious and euthymic. Affect is congruent, though continues to appear guarded at times. Thoughts are linear and logical. No evidence of psychosis or hallucinations. Client Response/Progress/Benefit: []Client was attentive during discussion and engaged in activity portions of group. Willing to complete the worksheet challenging each participant to develop a personal SMART goal. Client chose the goal of better organizing her time each day for the next week. Client stated this will benefit them by aiding in reducing stress, improving productivity, and improving overall ability to focus on one task at a time. Client identified barriers which included: lack of motivation and difficulties getting help from her spouse. Client receptive to identifying solutions for these barriers and willing to begin working on this goal. Benefited from this group by developing a short-term SMART goal related to mental health. Will continue IOP tx to further improve anxiety/stress management, increase consistency of healthy communication skills, and prevent decompensation. Narrative Note: []
--- NOTE | 2022-03-25 09:00 | BH.SGPN.GN ---
Behaviors/Verbalizations/Mental Status: [] Pt eye contact good, casually dressed, motor activity appropriate, speech normal rate and tone, mood euthymic, congruent affect, thoughts linear and intact, no evidence of delusions or hallucinations. Pt's symptom tracker indicates no current suicidal ideation, plan, or intention. Client Response/Progress/Benefit:Pt responded well to session AEB listening attentively to others and sharing thoughts and feelings. Pt reported mental health positive as taking a nap yesterday because she didn't get very good sleep the night before. Pt stated additional mental health positive as taking a couple walks in the [place] yesterday since the weather was better. Pt denies current stressor. Reports feeling encouraged this morning. Seemed to benefit from support from peers. Pt to continue IOP to continue use of healthy coping, improve confidence, and prevent decompensation.
--- NOTE | 2022-03-25 10:08 | BH.SGPN.GN ---
Behaviors/Verbalizations/Mental Status: []Pt alert and oriented, neatly dressed and groomed. Eye contact good. Motor activity appropriate. Speech within normal limits. Affect congruent, mood euthymic. Thoughts linear, logical, no signs of hallucinations or delusions. Client Response/Progress/Benefit: []Pt participated at times during the group discussions. Participated during interactive discussion on defining conflict (internal/external) and possible benefits to conflict. Attentive during psychoeducation on conflict styles and engaged during small group activity in which peers identified the benefits and consequences to each conflict style. Pt identified that their primary conflict styles as avoiding and accommodating. Pt shared when she avoids and accommodates her needs are not met. Benefited from increased awareness of the impact of conflict styles in mental health. Will continue in IOP to improve self-confidence, further reduce anxiety, and maintain gains. Narrative Note: []
--- NOTE | 2022-03-25 11:08 | BH.SGPN.GN ---
Behaviors/Verbalizations/Mental Status: []Pt alert and oriented, neatly dressed and groomed. Eye contact good. Motor activity appropriate. Speech within normal limits. Affect congruent, mood euthymic. Thoughts linear, logical, no signs of hallucinations or delusions. Client Response/Progress/Benefit: []Pt engaged in session AEB contributing to discussion and engaging in activity. Pt did well to review current conflict style and its impact on mental health. Attentive and taking notes during discussion on strategies for more effectively managing conflict in personal life.? Pt participated in activity and did well to talk through choices with peers. Pt given handout on fair fighting rules and identified that they want to work on taking turns when speaking. Pt shared she often listens to respond instead of listening to hear. Appeared to benefit from gaining strategies to help pt better manage conflict. Will continue IOP tx to improve mood stability, reinforce healthy coping skills, and maintain gains. Narrative Note: []
--- NOTE | 2022-03-26 10:05 | BH.SGPN.GN ---
Behaviors/Verbalizations/Mental Status: []Eye contact is good. Alert and oriented. Motor activity is appropriate. Appearance is casual. grooming is appropriate. Speech is Appropriate. Mood is anxious and euthymic. Affect is constricted. Thoughts are linear and logical. No evidence of psychosis or hallucinations. Client Response/Progress/Benefit: []Client active participate AEB listening attentively to others and providing contributions throughout. The group identified impacts of not managing emotions on communication as lashing out, stone-walling, not retaining information, and monopolizing the conversation. Client agreed with others when discussing the use of shutting down or minimizing their emotions when upset. Connected with how the can impede resolving the issue at hand or further effect emotion regulation. Client engaged in activity, able to manage emotions in the moment. Client benefited from session to gain understanding on the importance of managing emotions to improve daily functioning. Client will continue IOP to increase use of healthy anxiety management skills, challenge negative thoughts, and prevent decompensation. Narrative Note: []
--- NOTE | 2022-03-26 14:22 | BH.MDN_ITS ---
Multi-Disciplinary Note - Note 30-min Individual Time Started:: 11:30 Date: 03/26/22 Eye Contact:: Good Motor Activity:: Appropriate Appearance:: Casual Speech:: Appropriate Mood:: Anxious Affect:: Full Thoughts:: Linear, Logical, No evidence of hallucinations/delusions noted Staff Interventions:: psychoeducation on: - cognitive distortion, CBT techniques - CBT, Connection between thoughts, emotions, and behaviors., rapport building Client Response:: Pt reports that she notice increased anxiety symptoms during group activity today. Through further processing pt was able to identify the trigger as not feeling in control which she stated felt familiar to how she felt during her intense anxiety from 11/2021 till recently. When she was anxious she felt she had no control over her mood, thoughts, fear, future, or life which led to a perpetual cycle of anxiety, poor sleep, panic attacks, irritability, restlessness, depression, and passive Si. There more she tried to control her anxiety (and failed) the worse her depression and hopelessness got. Increased insight. It appears that during COVID she accepted that she had no control over her symptoms and in turn this helped her anxiety therefore improving her symptoms. Long discussion on the benefits of acceptance and being ok with not being in control of everything. Attentive during psychoeducation on cognitive distortions, CBT, and connection between thoughts, emotions, and behaviors. Risks/Concerns:: no risks or concerns noted. Progress Toward Goals/Plan:: Progress noted. Increased awareness and insight today. Responded well to psychoeducation and discussion on the role of acceptance in mental health. Reports that her anxiety has been manageable the past 2 weeks. Reports benefits to group support and education. Utilizing skills learned in IOP. Believes that her medications are effective. Met with her outpatient psychiatrist this AM. Was given assignment to review list of cognitive distortions and to [place] 3 most frequently used. Will continue in IOP to maintain gains, prevent decompensation, and increase coping strategies. Time Stopped:: 12:00
== END 2022-03-28 23:59 ==
LOC: BHIOP 08:00
PROVIDERS: PCP Family Medicine; Referring Provider Psychiatry & Neurology Psychiatry; Visit Provider Psychiatry & Neurology Psychiatry
DX: F41.1 Generalized anxiety disorder (principal); F41.0 Panic disorder [episodic paroxysmal anxiety]; Z79.899 Other long term (current) drug therapy
CPT/HCPCS: S9480; 90832; 90853

== ENCOUNTER 2022-03-31 07:30 | Outpatient (RCR) | payer OTHER, SELFPAY ==
[2022-03-29 00:39] VITALS: BP 111/60; PULSE 70
--- NOTE | 2022-03-31 09:00 | BH.SGPN.GN ---
Behaviors/Verbalizations/Mental Status: []Eye contact good, casually dressed, motor activity appropriate, speech normal rate and tone, mood anxious and euthymic, congruent affect, thoughts linear and intact, no evidence of delusions or hallucinations. Reviewed pt's symptom tracker, reports suicidal ideation within pt baseline and denies active plan or intent as of this date 03/31/22. Client Response/Progress/Benefit: []Pt responded well to session, attentive and providing supportive feedback throughout. Pt reports feeling ?enthusiastic this morning as she is continuing to see mental health improvements and is able to report she has not had any recent stressors to report. Shared current mental health wins include going to yoga and spending time with her supports. Reports feeling this has had positive impacts on her mood and perspective as a result. Appeared to benefit from group discussion and supportive environment. Recommended continued IOP tx to continue to improve consistency of healthy skill application, maintain mood stability, as well as prevent decompensation. Narrative Note: []
--- NOTE | 2022-03-31 10:15 | BH.SGPN.GN ---
Behaviors/Verbalizations/Mental Status: []Pt alert and oriented, neatly dressed and groomed. Eye contact good. Motor activity appropriate. Speech within normal limits. Affect congruent, mood euthymic. Thoughts linear, logical, no signs of hallucinations or delusions. Client Response/Progress/Benefit: []Pt responded well to session, contributing to discussion and engaged during the activity. Pt identified the benefits of change which included better relationships and getting help. Worked with the group to identify barriers to change and pt identified personal barrier as not liking feeling uncomfortable. Pt participated along with group in activity where they identified and discussed the emotions related to change. Pt participated in discussion on the change process and personal experiences with implementing change in past. Benefited from increased awareness and understanding of emotions, benefits, and barriers related to change. Will continue IOP tx to reinforce healthy coping skills, improve mood stability, and increase self-confidence. Narrative Note: []
--- NOTE | 2022-03-31 11:10 | BH.SGPN.GN ---
Behaviors/Verbalizations/Mental Status: []Pt alert and oriented, neatly dressed and groomed. Eye contact good. Motor activity appropriate. Speech within normal limits. Affect congruent, mood euthymic. Thoughts linear, logical, no signs of hallucinations or delusions. Client Response/Progress/Benefit: []Pt responded well to session, attentive. Did well to process activity and work with group to relate the strategies used to overcome barriers in the activity to managing change in own life. Pt identified wanting to work on continuing to be consistent with journaling. Pt has found several benefits of journaling so far, but pt wants to turn this into a more consistent habit in her daily life. Pt?s goal for tonight is to write one journal entry before bed. Pt will continue IOP tx to promote mood stability, improve daily functioning, and increase self-confidence. Narrative Note: []
--- NOTE | 2022-04-01 09:05 | BH.SGPN.GN ---
Behaviors/Verbalizations/Mental Status: []Pt alert and oriented, neatly dressed and groomed. Eye contact good. Motor activity appropriate. Speech within normal limits. Affect congruent, mood euthymic. Thoughts linear, logical, no signs of hallucinations or delusions. Reviewed pt?s symptom tracker and pt denies any active SI, plan, or intent as of 04/01/2022. ? Client Response/Progress/Benefit: [] Pt responded well to session, attentive and engaged. Pt reports feeling hopeful this morning as pt's mood and functioning has been consistently improving over the past few weeks. Pt shared she has been accomplishing tasks at home and practicing self-care. Pt also has been working on adjusting her expectations of herself and others which has allowed pt to more joyfully experience her days. Pt stated she has no stressors today. Pt appeared to benefit from reflecting on her application of coping skills. Pt will continue IOP tx to promote mood stability and maintain gains. Narrative Note: []
--- NOTE | 2022-04-01 10:10 | BH.SGPN.GN ---
Behaviors/Verbalizations/Mental Status: [] Eye contact is good. Motor activity is appropriate. Appearance is casual. Speech is Appropriate. Mood is anxious. Affect is congruent. Thoughts are linear and logical. No evidence of psychosis Client Response/Progress/Benefit: [] Pt participated at times during the group discussion. Attentive during psychoeducation. Pt and peers provided thoughts and feedback on the definition of crisis and types of crisis events. Participated in interactive discussion in which group identified unhealthy responses to crisis which included; alcohol use, drug use, sleeping to escape, binge-eating, lashing out at others, creating conflict to distract, isolating, avoiding responsibilities, not caring for oneself, and overspending. Pt was able to identify her top warning signs for being in crisis which were poor self-care and procrastination. Benefited from increased understanding of crisis and pt's personal crisis warning signs. Will continue in IOP to prevent decompensation and maintain gains. Narrative Note: []
--- NOTE | 2022-04-01 11:10 | BH.SGPN.GN ---
Behaviors/Verbalizations/Mental Status: []Client alert and oriented, casually dressed and groomed. Eye contact fair. Motor activity appropriate. Speech within normal limits. Affect constricted. Mood anxious. Thoughts linear, logical, no signs of hallucinations or delusions. Client Response/Progress/Benefit: []Client responded well to session as evidenced by client listening attentively to others and providing strategies during discussion. Client identified her warning signs for crisis and gained further awareness of earliest warning signs. Client created a crisis action plan to help client better manage warning signs for crisis. Client?s action plan for procrastination included: breaking down tasks into smaller goals, taking breaks, and making a checklist of what needs to be done. Client appeared to benefit from creating a crisis action plan and increasing self-awareness. Client to continue IOP tx to continue use of healthy coping skills and prevent decompensation.
--- NOTE | 2022-04-01 16:15 | BH.TPR ---
Treatment Plan Review Date of Admission:: 03/12/22 Date of Treatment Plan Review:: 04/01/22 Admitting Diagnoses:: 1. Generalized anxiety disorder. 2. Panic attack disorder Current Diagnoses:: 1. Generalized anxiety disorder. 2. Panic attack disorder Patient's Response to Treatment:: Consistent and engaged in IOP. Responding well to treatment. She is an active participant in group and follows through with assignments. Pt reports that she enjoys the groups and believes that she is learning a great deal of skills which are beneficial. Status of Current Problems and Symptoms: Pt self-reports decreased anxiety and improved functioning since starting IOP. Pt completed her DSM-5 outcomes measurement at 3 week arian and when compared to admission scores it shows a 100% decrease in depressive domain, anxiety domain, and suicidal ideation domain. She reports that she has returned to baseline and has had no significant anxiety issues at home or work. Returned to her normal work schedule and daily routine. Not isolating, no issues with sleep, energy is back to normal, and her focus/concentration/memory are returning to normal levels. She has begin to read causally again. Denies any suicidal ideation or passive thoughts of . She reports that she is gaining a lot from the groups and IOP. Utilizing skills learned. Problem #1 Problem Name:: Anxiety Status of Goals:: Overall scores have significantly decreased on her 3 week outcome measurement. obj 1- Pt has not yet had cognitive distortions group however we have started to work on CBT skills and education in individual sessions. She was given taks to identify most commonly used cog. distortions which we will review tomorrow. obj 2- Pt has learned and can identify numerous calming strategies since starting IOP. She is consistently utilizing these strategies (journaling, mindfulness, acceptance, etc) Team Recommendations:: Pt is progressing well. No changes or recommendations from treatment team. Problem #2 Problem Name:: Depression Status of Goals:: Overall her scores on the depression domain have significantly decreased. obj 1- Pt is able to identify negative automatic thoughts and utilize strategies to replace and reframe. She mainly utilizes this for anxiety. Pt's anxiety appears to be a trigger to her depression and passive SI. When overwhelmed with anxiety, panic, and unable to sleep due to ruminations this leads to depression. Since her anxiety has decreased her overall depression has decreased as well. Team Recommendations:: Pt is progressing well. No changes or recommendations from treatment team.
--- NOTE | 2022-04-02 09:03 | BH.SGPN.GN ---
Behaviors/Verbalizations/Mental Status: []Eye contact good, casually dressed, motor activity appropriate, speech normal rate and tone, mood euthymic, congruent and bright affect, thoughts linear and intact, no evidence of delusions or hallucinations. Reviewed pt's symptom tracker, reports suicidal ideation within pt baseline and denies active plan or intent as of this date 04/02/22. Client Response/Progress/Benefit: []Pt responded well to session, attentive and providing supportive feedback throughout. Pt reports feeling thankful this morning. Identified current mental health wins as accomplishing several tasks the previous date, including doing yardwork, balancing her checkbook, and going for several walks. Noted that she does not currently have any stressors which is an additional win for her. Discussed that continuing to journal and challenge her perspective will be necessary to maintain the gains she has made thus far. Recommended continued IOP tx to continue to improve consistency of healthy skill application, continue to maintain mood stability and application of anxiety management skills, as well as complete aftercare planning. Narrative Note: []
--- NOTE | 2022-04-02 10:05 | BH.SGPN.GN ---
Behaviors/Verbalizations/Mental Status: []Pt alert and oriented, neatly dressed and groomed. Eye contact good. Motor activity appropriate. Speech within normal limits. Affect congruent, mood euthymic. Thoughts linear, logical, no signs of hallucinations or delusions. Client Response/Progress/Benefit: []Pt was an active participant in group discussions. Attentive during psychoeducation and participated in interactive discussions in which group defined self-care, discussed the benefits to self-care, and identified common myths surrounding self-care. Pt took notes during session, but shared during small groups. Pt and peers broke into smaller group and worked together to bust the myths associated with self-care. Pt?s group worked on myths of self-care is not necessary, not everyone deserves self-care, and it takes too much energy. Benefited from increased awareness of the self-care and its benefits. Pt?s mood is consistently more positive and pt reports better management of stressors. Pt will continue IOP tx to reinforce healthy coping skills and further improve daily functioning. ? Narrative Note: []
--- NOTE | 2022-04-02 11:58 | BH.MDN ---
Multi-Disciplinary Note - Note 30-min Individual Time Started:: 11:30 Date: 04/02/22 Purpose of session/treatment goals addressed:: Reviewed progress and currently symptoms. Reviewed 3 week DSM-5 outcomes with patient. Eye Contact:: Good Motor Activity:: Appropriate Appearance:: Neat Speech:: Appropriate Mood:: Euthymic Affect:: Full Thoughts:: Linear, Logical, No evidence of hallucinations/delusions noted Staff Interventions:: CBT techniques - cognitive distortions, reviewed DSM-5 Client Response:: Reviewed DSM-5 with patient. Pt has shown significant decrease in symptoms since starting IOP. According to DSM-5 pt has had a 100% decrease in symptoms and reported 0 for the depressive, anxiety, and SI domains. She reports that she has returned to baseline and has had no significant anxiety issues at home or work. Returned to her normal work schedule and daily routine. Not isolating, no issues with sleep, energy is back to normal, and her focus/concentration/memory are returning to normal levels. She has begin to read causally again. Denies any suicidal ideation or passive thoughts of . She reports that she is gaining a lot from the groups and IOP. Utilizing skills learned. She completed homework on cognitive distortions and she identified unfair comparisons as the primary distortion that she believes impacts her anxiety and depression. Often compares herself, her house, and her marriage, etc. to others. Discussed how this impacts her mental health and ways to challenge and reframe this distortion. Risks/Concerns:: no risks or concerns noted. Progress Toward Goals/Plan:: Pt continues to make progress. Has shown consistent stability for the past 2-3 weeks. Utilizing skills learned. Medication compliant. Consistent and engaged in IOP and reports gaining a lot from the groups. We discussed discharge as her symptoms are decreasing and her mood stabilizing. Plan to discharge next week. Pt is linked with counseling and psychiatry for aftercare. Time Stopped:: 11:55
--- NOTE | 2022-04-07 10:10 | BH.SGPN.GN ---
Behaviors/Verbalizations/Mental Status: []Eye contact is good. Motor activity is appropriate. Appearance is casual. Speech is Appropriate. Mood is euthymic. Affect is congruent. Thoughts are linear and logical. No evidence of psychosis. Client Response/Progress/Benefit: []Pt was an attentive and engaged participant in group discussions and experiential activity, providing input throughout. Attentive during psychoeducation on resilience. Participated in interactive discussion with peers on the definition of resilience and where it comes from. Noted that to her resilience means strength. Group identified that resilience can be the result of; past experiences, learned behaviors, and observations of others. Group also worked together to identify the benefits of being resilient and how it is related to mental health. Worked well with peers in small group in which they identified factors that contribute to resilience. Benefited from increased awareness of resilience and the factors that contribute to building resiliency. Will continue in IOP to prevent decompensation, maintain gains, and continue to promote active skill application. Narrative Note: []
--- NOTE | 2022-04-07 10:15 | BH.MDN ---
Multi-Disciplinary Note - Note 45-min Individual Time Started:: 09:15 Date: 04/07/22 Purpose of session/treatment goals addressed:: Review progress and current symptoms. Eye Contact:: Good Motor Activity:: Appropriate Appearance:: Casual Speech:: Appropriate Mood:: Euthymic Affect:: Full Thoughts:: Linear, Logical, No evidence of hallucinations/delusions noted Staff Interventions:: CBT techniques, discharge planning Client Response:: Pt reports moderate stressor this AM. We processed the stress, the trigger, and coping strategies to utilize. We reviewed her progress since our visit conversation on the phone in 12/2021 focusing on her resiliency and strategies that are important for her to maintain to remain stable. Identified honest communication with support, sleep, physical health, emotional health, spirituality, having purpose, and self-care. She has started to journal which she reports has had positive benefits on her mental health. It helps her process her day, identify current emotional health and stressors, and gives her a change to identify her positives. She reports learning a great deal in IOP however struggles to recall the skills w/o use of her notebook and binder from IOP. Risks/Concerns:: no risks or concerns noted. Progress Toward Goals/Plan:: Consistent and engaged in IOP. Progress noted. Pt has shown consistent stability and reports benefits from psychoeducation, support, and medications. Receptive to feedback. Plan is to discharge pt this week. She is currently linked with outpatient psychiatrist and therapist. Time Stopped:: 10:00
--- NOTE | 2022-04-07 11:10 | BH.SGPN.GN ---
Behaviors/Verbalizations/Mental Status: []Pt alert and oriented, casually dressed and groomed. Eye contact good. Motor activity appropriate. Speech within normal limits. Affect congruent, mood euthymic, anxious. Thoughts linear, logical, no signs of hallucinations or delusions. Client Response/Progress/Benefit: []Pt responded well to session AEB providing input throughout discussion on resilience factors, as well as completing the resilience worksheet provided. Pt participated in the discussion of each resiliency component and worked cooperatively with group to identify strategies to enhance each of the components discussed. Pt reported doing well with the resilience trait of make connections. Pt would like to continue to develop resilience trait of self-care by scheduling time for self-care activities she has been putting off such as going to the chiropractor and getting a massage.. Pt seemed to benefit from discussing strategies for improving personal resilience and identifying resilience traits pt already possesses. Will continue IOP tx to further promote mood stability, reinforce healthy coping skills, and continue to promote healthy communication with supports. Narrative Note: []
--- NOTE | 2022-04-08 09:10 | BH.SGPN.GN ---
Behaviors/Verbalizations/Mental Status: []Eye contact fair to good, casually dressed, motor activity appropriate, speech normal rate and tone, mood anxious and euthymic, constricted affect, thoughts linear and intact, no evidence of delusions or hallucinations. Reviewed pt's symptom tracker, denies any suicidal ideation, plan, or intent as of this date 04/08/22. Client Response/Progress/Benefit: []Pt responded well to session, attentive and providing supportive feedback at times throughout. Pt reports feeling encouraged this morning. She reflected on current mental health wins which included continuing to use journaling to support herself in maintaining a more positive outlook, as well as following through with a self-care goals she identified the previous day. Current stressor noted as impacts of the mask on her skin and did well to identify ways to address this. Appeared to benefit from group discussion and supportive environment. Recommended continued IOP tx to continue to improve consistency of healthy skill application, promote mood stability, as well as prevent decompensation. Narrative Note: []
--- NOTE | 2022-04-08 10:10 | BH.SGPN.GN ---
Behaviors/Verbalizations/Mental Status: []Eye contact is good. Motor activity is appropriate. Appearance is casual. Speech is Appropriate. Mood is euthymic. Affect is congruent. Thoughts are linear and logical. No evidence of psychosis. Client Response/Progress/Benefit: []Pt was mostly a passive participant in group discussion. Attentive during psychoeducation on different types of anxiety disorders. Along with peers provided insight on the definition of anxiety as well as the impact of anxiety which include; not functioning, isolating at home, lack of personal growth, and avoidance. Pt identified her physical symptoms of anxiety which were increased heart rate, shaking, pacing, and nausea. Pt identified personal safety behaviors as rehearsing what she wants to say and sitting in the back of the room. Benefited from increased insight and awareness from group discussions. Pt is to continue IOP to reinforce healthy coping skills and establish aftercare. Narrative Note: []
--- NOTE | 2022-04-08 11:10 | BH.SGPN.GN ---
Behaviors/Verbalizations/Mental Status: []Client alert and oriented, casually dressed and groomed. Eye contact fair. Motor activity appropriate. Speech within normal limits. Affect constricted, mood anxious. Thoughts linear, logical, no signs of hallucinations or delusions. Client Response/Progress/Benefit: []Client was a active participant in group discussion AEB providing contributions throughout group and listening attentively to others. Client able to connect how current safety behaviors are reinforcing anxiety. Attentive during psychoeducation on anxiety management skills. The group practiced belly breathing and chair yoga in session. Engaged and attentive during group brainstorm of healthy anxiety reduction skills. Appeared to benefit from practicing in the moment coping skills and increasing repertoire of anxiety management skills. Client will continue IOP tx to continue use of healthy coping skills, challenge negative thinking, and prevent decompensation.
--- NOTE | 2022-04-09 09:05 | BH.SGPN.GN ---
Behaviors/Verbalizations/Mental Status: [] Eye contact is good. Motor activity is appropriate. Appearance is casual. Speech is Appropriate. Mood is euthymic. Affect is full. Thoughts are linear and logical. No evidence of psychosis. Reviewed daily check in sheet and no reports of suicidal ideations or intent. Client Response/Progress/Benefit: [] Pt participated at times during the group discussion. Attentive. Emotion for today is Grateful. Shared that she is anxious and nervous as today is her last day in [facility]. Mental health wins include self-care and exercise. Briefly discussed her progress since 12/2021 regarding her anxiety. Improved functioning for the past several weeks. Believes that [facility] was very helpful as it provided support, encouragement, and education. Groups that resonated the most with her involved relationships and self-care. Benefited from group support, encouragement, and feedback. Will be discharged from [facility] today. Narrative Note: []
--- NOTE | 2022-04-09 10:10 | BH.SGPN.GN ---
Behaviors/Verbalizations/Mental Status: []Pt alert and oriented, casually dressed and groomed. Eye contact good. Motor activity appropriate. Speech within normal limits. Affect congruent, mood anxious and euthymic. Thoughts linear, logical, no signs of hallucinations or delusions. Client Response/Progress/Benefit: []Pt responded well to session AEB taking notes throughout, providing input when prompted,and listening attentively to others. Pt was engaged throughout group activity identifying famous individuals and how they overcame failure to be successful. Pt helped group identify how fear of failure can impact mental health and relationships. Pt personally identified that fear of failure has resulted in having a lot of what if thoughts and then remaining stagnant rather than challenging herself to try something different. Pt participated in experiential activity and used group for support as needed. Appeared to benefit from increased knowledge of fear of failure. ?Will continue IOP tx to prevent decompensation, promote healthy coping behaviors, and increase mood stability. ? Narrative Note: [] Behaviors/Verbalizations/Mental Status: []Pt alert and oriented, casually dressed and groomed. Eye contact good. Motor activity appropriate. Speech within normal limits. Affect congruent, mood anxious and euthymic. Thoughts linear, logical, no signs of hallucinations or delusions. Client Response/Progress/Benefit: []Pt responded well to session AEB taking notes throughout, providing input when prompted,and listening attentively to others. Pt was engaged throughout group activity identifying famous individuals and how they overcame failure to be successful. Pt helped group identify how fear of failure can impact mental health and relationships. Pt personally identified that fear of failure has resulted in having a lot of what if thoughts and then remaining stagnant rather than challenging herself to try something different. Pt participated in experiential activity and used group for support as needed. Appeared to benefit from increased knowledge of fear of failure. ?Will continue IOP tx to prevent decompensation, promote healthy coping behaviors, and increase mood stability. ? Narrative Note: []
--- NOTE | 2022-04-09 11:15 | BH.SGPN.GN ---
Behaviors/Verbalizations/Mental Status: []Pt alert and oriented, neatly dressed and groomed. Eye contact good. Motor activity appropriate. Speech within normal limits. Affect congruent, mood euthymic. Thoughts linear, logical, no signs of hallucinations or delusions. Client Response/Progress/Benefit: []Pt responded well to session, engaged in the experiential activity and attentive throughout group processing. Pt completed fear of failure worksheet and was able to identify thoughts and behaviors that reinforce personal fear of failure including procrastination, money, and negative thinking. Pt shared fear of failure has kept pt from going back to school. Pt participated in small group discussion regarding strategies to overcome fear of failure. Identified implementing opposite action, positive self-talk, and mindfulness. ?Appeared to benefit from increased knowledge of strategies to combat fear of failure and gaining self-awareness. Pt will discharge from IOP tx today as pt has met her tx goals and no longer meets? criteria for IOP level of care. Narrative Note: []
--- NOTE | 2022-04-09 11:52 | BH.DS ---
Discharge Summary - Demographics Date of Admission:: 03/12/22 Discharge Date: 04/09/22 Presenting Problems at Admission:: Pt is a 61 year old female with recent exacerbation of anxiety since 11/2021. No previous psychiatric admissions. Referred by [facility] ER after presenting in mental health crisis on 01/22/22. Presented to the ER with significant anxiety and panic attacks which were impacting her functioning. Since that ER admission she had seen a psychiatrist and psychologist with limited benefit. During her pre-admission intake in which her was also present she reported poor sleep (less than 2 hours), poor appetite, low energy, low motivation, isolation, avoidance, hopelessness, no pleasure in activities, and anhedonia. Pt reported constant feelings of dread. Frequent panic attacks, ruminations, restlessness, and poor concentration, memory, and focus. Denied active suicidal ideations, plan, or intent. No hx of attempts. Reported passive thoughts of and survival ambivalence. Increase irritability and frustration with her anxiety and lack of progress. Denied HI or psychosis. Unable to complete tasks around the house and had not been to work due to her mental health symptoms. Family hx of depression (father). Pt's nephew completed suicide. Denies substance abuse issues. Discharge Diagnoses:: Diagnosis #1:: Generalized Anxiety Disorder F41.1. Diagnosis #2:: Panic Disorder Reason for Discharge:: No longer meets criteria for IOP level of care. Per pt report and outcome scores on DSM-5 cross-cutting scales by denies any significant distress associated with anxiety or depression. - Treatment Progress During Treatment & Response: Consistent and engaged in IOP. Responded well to IOP. Pt has shown consistent stability and reports benefits from psychoeducation, support, and medications. Receptive to feedback. According to DMS-5 cross-cutting scales pt showed significant decrease in depression domain (going from 4 to 0) and anxiety domain (going from 4 to 0). Outcome scales also indicate improvement in sleep, anger mgmt, and psychosomatic symptoms. Issues Still to be Addressed:: Recommended to continue with outpatient counseling and psychiatry to prevent decompensation and maintain gains. Discharge Recommendations/Instructions:: Dr. Emmett Riggs- 05/29/21, psychiatry. Leighann Georges (psychologist)- left message to schedule session. Due to pt's insurance ([employer]) not covering aftercare program here at [facility] she cannot attend. Discharge Handout: Complete Discharge Handout with client on aftercare options and continuity of care.
--- NOTE | 2022-04-09 11:52 | BH.AFTERPLAN ---
Aftercare Plan - Demographics Treatment End Date:: 04/09/22 Psychiatrist:: Corinna Schofield Psychiatrist Office #:: [phone] PHP/IOP Therapist:: Eddie Vieira Therapist Phone #:: [phone] - Plan Details Progress/Aftercare Plan Details:: Consistent and engaged in IOP. Responded well to IOP. Pt has shown consistent stability and reports benefits from psychoeducation, support, and medications. Receptive to feedback. According to DMS-5 cross-cutting scales pt showed significant decrease in depression domain (going from 4 to 0) and anxiety domain (going from 4 to 0). Outcome scales also indicate improvement in sleep, anger mgmt, and psychosomatic symptoms. Strategies for Success:: We reviewed her progress since our visit conversation on the phone in 12/2021 focusing on her resiliency and strategies that are important for her to maintain to remain stable. Identified honest communication with support, sleep, physical health, emotional health, spirituality, having purpose, and self-care. She has started to journal which she reports has had positive benefits on her mental health. It helps her process her day, identify current emotional health and stressors, and gives her a change to identify her positives. She reports learning a great deal in IOP however struggles to recall the skills w/o use of her notebook and binder from IOP. - Appointments Appointments/Referrals to Other Services:: Dr. Emmett Riggs- 05/29/21, psychiatry. Leighann Georges (psychologist)- left message to schedule session. Due to pt's insurance ([employer]) not covering aftercare program here at [facility] she cannot attend. - Medications Home Medications: Home Medications L.paracasei,rhamnosus-B.animalis 11 billion cell-vit C 15 mg capsule (Probiotic Digestive Support (4-strain)) cap PO 01/26/22 cholecalciferol (vitamin D3) 25 mcg (1,000 unit) capsule 25 mcg PO DAILY 01/26/22 hydroxyzine HCl 25 mg tablet 25 mg PO TID PRN PRN Anxiety #90 tabs 01/26/22 levomefolate 15 mg-algal oil 90.314 mg capsule (L-Methylfolate Forte) ea PO 01/26/22 mecobalamin (vitamin B12) 1,000 mcg lozenges 1,000 mcg PO DAILY 01/26/22 multivitamin 1 tab PO DAILY 01/26/22 omega-3 900 mg-dha 320 mg-epa 580 mg-fish oil 1,360 mg capsule (Fish Oil) cap PO 01/26/22 lorazepam 1 mg tablet 1 mg PO DAILY PRN anxiety #10 tabs 02/16/22 escitalopram oxalate 5 mg tablet 5 mg PO DAILY #30 tabs 03/26/22 mirtazapine 15 mg tablet 15 mg PO QHS #30 tabs 03/26/22
== END 2022-04-09 12:32 | disposition home or self-care (01) ==
LOC: BHIOP 07:30
PROVIDERS: PCP Family Medicine; Referring Provider Psychiatry & Neurology Psychiatry; Visit Provider Psychiatry & Neurology Psychiatry
DX: F41.1 Generalized anxiety disorder (principal); F41.0 Panic disorder [episodic paroxysmal anxiety]
CPT/HCPCS: S9480; 90832; 90834; 90853

== ENCOUNTER → 2022-10-17 | Outpatient (CLI) | payer OTHER, SELFPAY ==
[2022-10-17 09:53] LABS: Anion Gap 2 (5-15); BUN 14 mg/dL (7-18); BUN/Creat Ratio 17.1 RATIO (10-20); Calcium,Total 9.1 mg/dL (8.5-10.1); Chloride 111 mmol/L (98-107); Cholesterol 216 mg/dL (200); Creatinine, Serum 0.82 mg/dL (0.55-1.02); EST Glomerular Filtration Rate 76 mL/min (>60); Est Glom Filt Rate - Afr Amer 92 mL/min (>60); Glucose 83 mg/dL (74-106); High Density Lipoprotein 91 mg/dL; Potassium 3.9 mmol/L (3.5-5.1); Sodium Level 141 mmol/L (136-145); Triglycerides 46 mg/dL; Very Low Density Lipoprotein 9 mg/dL (5-40)
== END | disposition home or self-care (01) ==
LOC: LAB 08:14
PROVIDERS: PCP Family Medicine; Referring Provider Nurse Practitioner Family; Visit Provider Nurse Practitioner Family
DX: Z13.1 Encounter for screening for diabetes mellitus (principal); Z13.220 Encounter for screening for lipoid disorders
CPT/HCPCS: 36415; 80048; 80061

== ENCOUNTER → 2023-08-04 | Outpatient (CLI) | payer OTHER, SELFPAY ==
--- NOTE | 2023-08-04 10:13 | BI_ITS ---
MAMMOGRAPHY - BILATERAL SCREENING REASON FOR EXAM: Female, 62 years old. Routine annual screening examination. PERTINENT HISTORY: Non-contributory. TECHNIQUE: Digital bilateral breast vanessa (3D mammographic acquisition) in the CC and MLO projections. 2-D mediolateral oblique (MLO) and craniocaudad (CC) views of both breasts were obtained. CAD: Full Field Digital Mammography with Computer Added Detection was performed. COMPARISON: Comparison is made with prior outside examination dated April 23, 2022. FINDINGS: Breast Composition: The breasts are extremely dense, which lowers the sensitivity of mammography. There is a 6 mm x 7.1 mm well-defined nodule in the medial retroareolar region of the right breast. Correlation with ultrasound is recommended. Stable small benign-appearing bilateral axillary lymph nodes. No other significant abnormalities are identified. There has been no significant change since the prior study. BI/SCRN MAMM (CAD)W/VANESSA BILAT IMPRESSION: 6 mm x 7.1 mm well-defined nodule in the medial retroareolar region of the right breast. Correlation with ultrasound is recommended. ASSESSMENT CATEGORY: BIRADS Category 0: Incomplete. Need additional imaging evaluation. A letter regarding these results will be sent to the patient by the facility within 30 days. Approximately 10% of breast cancers are not detected by mammography. A normal mammogram should not delay biopsy of a clinically suspicious abnormality. [id number] Electronically Signed: Jorge L Santos MD at 11:37 EDT ,
== END | disposition home or self-care (01) ==
LOC: OPBI 10:12
PROVIDERS: PCP Family Medicine; Referring Provider Family Medicine; Visit Provider Family Medicine
DX: Z12.31 Encounter for screening mammogram for malignant neoplasm of breast (principal)
CPT/HCPCS: 77063; 77067

== ENCOUNTER → 2023-08-11 | Outpatient (CLI) | payer OTHER, SELFPAY ==
--- NOTE | 2023-08-11 08:28 | US_ITS ---
STUDY: ULTRASOUND BREAST - RIGHT REASON FOR EXAM: Female, 62 years old. Abnormal screening mammogram. TECHNIQUE: Axial and longitudinal images of the RIGHT breast were performed with a high resolution ultrasound transducer. # OF IMAGES: 60 COMPARISON: Comparison is made with prior mammogram dated August 04, 2023. FINDINGS: RIGHT Breast: The retroareolar region as well as the medial aspect of the right breast was examined with ultrasound. There is dense fibroglandular tissue. No sonographic abnormality is seen. US/Breast Limited Unilateral IMPRESSION: No sonographic abnormality is seen. ASSESSMENT CATEGORY: BIRADS Category 1: Negative. A letter regarding these results will be sent to the patient by the facility within 30 days. Electronically Signed: Jorge L Santos MD at 15:00 EDT ,
--- NOTE | 2023-08-11 08:57 | BI_ITS ---
MAMMOGRAPHY - UNILATERAL DIAGNOSTIC: RIGHT BREAST REASON FOR EXAM: Female, 62 years old. Abnormal screening mammogram. Unremarkable sonogram. PERTINENT HISTORY: Non-contributory. TECHNIQUE: Compression spot views of the right breast were obtained. CAD: Full Field Digital Mammography with Computer Added Detection was performed. COMPARISON: Comparison is made with prior study dated August 04, 2023. FINDINGS: Breast Composition: The breasts are extremely dense, which lowers the sensitivity of mammography. There are no dominant masses or suspicious calcifications. No other significant abnormalities are identified. BI/DIAG MAMM W/CAD, UNILAT IMPRESSION: Negative unilateral diagnostic mammogram. Yearly followup mammogram recommended. (A) ASSESSMENT CATEGORY: BIRADS Category 1: Negative. A letter regarding these results will be sent to the patient by the facility within 30 days. Approximately 10% of breast cancers are not detected by mammography. A normal mammogram should not delay biopsy of a clinically suspicious abnormality. Electronically Signed: Jorge L Santos MD at 9:54 EDT ,
== END | disposition home or self-care (01) ==
LOC: OPUS 08:24
PROVIDERS: PCP Family Medicine; Referring Provider Family Medicine; Visit Provider Family Medicine
DX: R92.8 Other abnormal and inconclusive findings on diagnostic imaging of breast (principal)
CPT/HCPCS: 76642; 77065

== ENCOUNTER → 2023-10-05 | Outpatient (CLI) | payer OTHER, SELFPAY ==
[2023-10-05 13:06] LABS: Thyroid Stim Hormone (TSH) 2.37 uIU/mL (0.358-3.74)
== END | disposition home or self-care (01) ==
LOC: MFPLAB 10:27
PROVIDERS: PCP Family Medicine; Visit Provider Family Medicine
DX: E03.9 Hypothyroidism, unspecified (principal)
CPT/HCPCS: 36415; 84443

== ENCOUNTER 2024-01-15 17:13 | Emergency (ER) | payer OTHER, SELFPAY ==
[2024-01-15 17:14] VITALS: BP 112/76; PULSE 73; RESP 16; TEMP 35.6; O2SAT 99; BMI 20.6
--- NOTE | 2024-01-15 17:50 | EX.ED.DYSGE1 ---
HPI History of Present Illness Chief Complaint: Wound Narrative Narrative: 63-year-old female presents with tick bite/tick removal from a tick that she noticed today on the left side of her neck. She states that she had been bitten by ticks previously. She was unable to remove this at home because it is in an awkward position. She denies any exacerbating or alleviating factors, but was hiking in the [place] today, and she states [place] also [place]. She had picked up some branches today. PFSH PFS Medical History Panic disorder VEENA (generalized anxiety disorder) Home Medications ?Medication ?Instructions ?Recorded ?Last Taken ?Type NK 01/15/24 Unknown History Allergy/AdvReac Type Severity Reaction Status Date / Time house dust Allergy Mild Sneezing Verified 01/15/24 17:14 Family History Father Depression Surgical History Hx of tonsillectomy Social History Smoking Status: Never smoker alcohol intake: never substance use type: does not use ROS ROS ED ROS Narrative Focused review of systems positive for tick on left side of neck. No fevers or chills, no nausea or vomiting. No redness to the area. States it feels more like a burning, stinging sensation. EXAM Physical Exam Narrative Exam Narrative: Afebrile. Vital signs noted. Regular rate and rhythm. Lungs clear to auscultation bilaterally. Inspection of the left neck does reveal a tick within the skin on the left side of her neck, no surrounding erythema. Const Vital Signs: 01/15/24 17:14 Temperature 96.1 F L Temperature Source Temporal Pulse Rate 73 Respiratory Rate 16 Blood Pressure 112/76 Blood Pressure Mean 88 Pulse Ox 99 Oxygen Delivery Method Room Air MDM MDM MDM Narrative Medical decision making narrative: I do not feel differential diagnosis is applicable in this case. Tick was manually removed using tweezers. Mouthparts were removed as well. Area was cleansed with rubbing alcohol. As the tick has been on her for less than 72 hours she was given a one-time dose of doxycycline 200 mg as prophylaxis. I feel she can be discharged to follow-up. She was given the [facility] Lyme disease prophylaxis sheet. Return instructions to the emergency department were reviewed. I do feel she has low risk of doni Lyme disease as she noticed a tick today. Disposition is discharged home in stable condition. History & Record Review Discussion w/independent historian: Patient Discharge Plan Triage Chief Complaint: Wound ED Provider: Finn Thakkar Dx/Rx/DC Orders Clinical Impression: Tick bite Instructions: ED Tick Facts, ED Tick Bite, Antibiotic Treatment Prescriptions: No Action levomefolate-algal oil [L-Methylfolate Forte] 15-90.314 mg capsule PO Patient Comments: TAKE 1 CAPSULE BY MOUTH EVERY DAY multivitamin Tablet 1 tab PO DAILY Fish Oil 900 mg (320 mg- 580mg)-1,360 mg capsule PO Probiotic Digest Supp (4-strn) 11 billion cell -15 mg capsule PO cholecalciferol (vitamin D3) 25 mcg (1,000 unit) capsule 25 mcg PO DAILY mecobalamin (vitamin B12) 1,000 mcg lozenge 1,000 mcg PO DAILY Rx Instructions: allow to dissolve in mouth OR may chew lightly before swallowing escitalopram oxalate 5 mg tablet 5 mg PO DAILY Qty: 30 3RF mirtazapine 15 mg tablet 15 mg PO QHS Qty: 30 3RF Primary Care Provider: Mani Starr Referrals: Mani Starr MD [Primary Care Provider] - 3-5 Days if not improving Print Language: Palauan Disposition Disposition: Home, Self Care
[2024-01-15] MEDS: Doxycycline 100 MG CAPSULE 200 MG PO (17:52)
--- OUTSIDE RECORDS SUMMARY | 2024-01-15 17:56 | XMS RPT_ITS | CCD ---
Author Organization [facility] Care Team Providers Care Shotblast Equipment Operator Name Role Phone Matty STEELE, Maria Fernanda Quick Primary Care Provider Allergies Allergy Classification Reported Allergen(s) Allergy Type Date of Onset Reaction(s) Facility (4 sources) environmental [Other] Propensity to adverse reactions 5 Other: See Comments [facility] (1 source) house dust allergenic extract Drug Allergy 4 Other: See Comments [facility] Work Phone: (1 source) OTHER; Translations: [OTHER] Propensity to adverse reactions (disorder) 5 [facility] Medications Current Medications Medication Drug Class(es) Dates Sig (Normalized) Sig (Original) doxycycline hyclate 100 mg oral tablet (6 sources) Tetracycline-clas s Drug Start: 07-09-2023 End: 07-23-2023 take 1 tablet by mouth twice daily doxycycline (VIBRA-TABS) 100 mg tablet Indications: Tick bite of right thigh, initial encounter Take 1 tablet by mouth two times a day for 14 days. 20 tablet 0 07/09/2023 07/23/2023 Active Start: 02-03-2022 End: 07-09-2023 take 2 tablets by mouth once daily doxycycline (VIBRA-TABS) 100 mg tablet Take 2 tablets by mouth once daily. 2 tablet 0 02/03/2022 07/09/2023 Discontinued Start: 01-07-2022 End: 01-08-2022 take 2 tablets by mouth once daily doxycycline (VIBRA-TABS) 100 mg tablet Take 2 tablets by mouth once daily for 1 day. 2 tablet 0 01/07/2022 01/08/2022 Active Comment on above: Take 2 tablets by mo uth once daily for 1 day. Take 2 tablets by mo uth once daily. Take 1 tablet by [facility] two times a day for 14 days. mupirocin 0.02 mg/mg topical ointment (1 source) RNA Synthetase Inhibitor Antibacterial Start: 07-09-2023 End: 07-19-2023 mupirocin (BACTROBAN) 2 % ointment Indications: Tick bite of right thigh, initial encounter Apply to affected area three times a day for 10 days. 15 g 0 07/09/2023 07/19/2023 Active Comment on above: Apply to affected ar ea three times a day for 10 days. Completed/Discontinued Medications Medication Drug Class(es) Dates Sig (Normalized) Sig (Original) Calcium (5 sources) Phosphate Binder, Calcium Start: 03-13-2005 CALCIUM 100 MG CAP Take one(1) tablet daily. 0 03/13/2005 Active Comment on above: Take one(1) tablet d aily. escitalopram 5 mg oral tablet (4 sources) Serotonin Reuptake Inhibitor Start: 01-26-2022 take 1 tablet by mouth once daily escitalopram oxalate (LEXAPRO) 5 mg tablet Take 5 mg by mouth once daily. 0 01/26/2022 Active Comment on above: Take 5 mg by mouth o nce daily. hydrOXYzine hydrochloride 25 mg oral tablet (4 sources) Antihistamine Start: 01-26-2022 take 1 tablet by mouth every eight hours as needed hydrOXYzine HCl (ATARAX) 25 mg tablet Take 25 mg by mouth three times daily as needed. 0 01/26/2022 Active Comment on above: Take 25 mg by mouth three times daily as needed. L. acidophilus-L. rhamnosus 15 billion cell cap (5 sources) Start: 02-01-2019 take 1 capsule by mouth once daily L. acidophilus-L. rhamnosus 15 billion cell cap Indications: Vaginal discharge Take 1 capsule by mouth once daily. If taking with an antibiotic, take at least 1-2 hours before or after antibiotic. KEEP REFRIGERATED 30 capsule 11 02/01/2019 Active Comment on above: Take 1 capsule by [facility] once daily. If taking with an antibiotic, take at least 1-2 hours before or after antibiotic. KEEP REFRIGERATED LORazepam 1 mg oral tablet (4 sources) Benzodiazepine Start: 01-26-2022 LORazepam (ATIVAN) 1 mg tablet Take 1 mg by mouth as needed. 0 01/26/2022 Active Comment on above: Take 1 mg by mouth a s needed. MULTIVITAMIN TABLET (5 sources) Start: 07-04-2002 MULTIVITAMIN TABLET Take one(1) tablet daily. 0 07/04/2002 Active Comment on above: Take one(1) tablet d aily. OMEGA-3S/DHA/EPA/FI SH OIL (OMEGA 3 ORAL) (5 sources) OMEGA-3S/DHA/EPA /FI SH OIL (OMEGA 3 ORAL) Take 1 capsule by mouth as needed. 0 Active Comment on above: Take 1 capsule by mo uth as needed. traZODone hydrochloride 50 mg oral tablet (4 sources) Serotonin Reuptake Inhibitor Start: 01-27-2022 traZODone (DESYREL) 50 mg tablet TAKE 1/2 (ONE-HALF) TO 1 (ONE) TABLET AT BEDTIME NEEDED FOR SLEEP 0 01/27/2022 Active Comment on above: TAKE 1/2 (ONE-HALF) TO 1 (ONE) TABLET AT BEDTIME NEEDED FOR SLEEP vitamin b12 1 mg oral tablet (5 sources) Vitamin B12 take 1 tablet by mouth once daily cyanocobalamin (VITAMIN B-12) 1,000 mcg tab Take 1,000 mcg by mouth once daily. 0 Active Comment on above: Take 1,000 mcg by mo uth once daily. Zinc Acetate (5 sources) ZINC ACETATE ORA L Take by mouth. 0 Active Comment on above: Take by mouth. Problems Active Problems Problem Classification Problem Date Documented Da te Episodic/Chronic E Codes: Natural/environment (2 sources) Tick bite; Translations: [Bitten or stung by nonvenomous insect and other nonvenomous arthropods, initial encounter] Episodic Other female genital disorders (5 sources) Dyspareunia; Translations: [Other specified dyspareunia] Onset: 11-01-2020 11-01-2020 Chronic Other injuries and conditions due to external causes (1 source) Puncture wound - injury; Translations: [Other injury of unspecified body region, initial encounter] 07-09-2023 Episodic Past or Other Problems Problem Classification Problem Date Documented Date Episodic/Chronic Nutritional deficiencies (5 sources) Vitamin B deficiency; Translations: [Deficiency of other specified B group vitamins] Onset: 04-17-2017 05-05-2018 Episodic Other and unspecified benign neoplasm (5 sources) Polyp of colon; Translations: [Polyp of colon] Onset: 11-04-2016 05-05-2018 Episodic Other connective tissue disease (5 sources) Increased muscle tone; Translations: [Other specified disorders of muscle] Onset: 11-01-2020 11-01-2020 Episodic Other female genital disorders (5 sources) Vaginal dryness; Translations: [Other specified noninflammatory disorders of vagina] Onset: 10-19-2013 10-19-2013 Episodic Other screening for suspected conditions (not mental disorders or infectious disease) (6 sources) Raised TSH level; Translations: [Other specified abnormal findings of blood chemistry] Onset: 04-30-2015 03-24-2021 Episodic Other skin disorders (5 sources) Lump on finger; Translations: [Localized swelling, mass and lump, unspecified upper limb] Onset: 04-30-2015 03-24-2021 Episodic Residual codes; unclassified (5 sources) Persistent insomnia; Translations: [Insomnia, unspecified] Onset: 04-30-2015 04-30-2015 Episodic Results Test Name Value Interpretation Reference Range Yeny Adair 07-09-2023 CN Office Visit (UCTR ) MARI LERMA ([id number]) 1960 F Date Time Provider Department 07/09/23 5:15 PM DESTINEE FIELDS [facility] During your visit today, we recorded the following information about you: Temperature Pulse Respiration Blood pressure 97.9 degrees 62/minute 16/minute 112/68 Weight 60.4 kg Destinee Fields APRN.SEVERITY OF ILLNESS COORDINATOR 07/09/2023 5:38 PM Addendum Subjective Female with complaints of possible tick stuck to right buttock. Patient says she is not sure how long she has had it there. Patient denies any other symptoms associated with this. The history is provided by the patient. No specialized language instructor was used. Trauma Review of Systems Constitutional: Negative. Skin: Negative. Objective Physical Exam Constitutional: Appearance: Normal appearance. Pulmonary: Effort: Pulmonary effort is normal. Skin: Comments: engorged adult tick located in the area marked above. Significant tissue degradation noted at site. Neurological: Mental Status: She is alert. PAST MEDICAL HISTORY Diagnosis Date Allergic rhinitis, cause unspecified environmental Encounter for screening colonoscopy 2016 Female infertility of unspecified origin primary Hypothyroidism 02/15/2012 Was low in the past; TSH checked 2014 was within normal range at 3.320 PAST SURGICAL HISTORY Procedure Laterality Date TONSILLECTOMY PRIMARY/SECONDARY AGE 14/> Tonsillectomy ALLERGIES House Dust MEDICATIONS traZODone (DESYREL) 50 mg tablet TAKE 1/2 (ONE-HALF) TO 1 (ONE) TABLET AT BEDTIME NEEDED FOR SLEEP ZINC ACETATE ORAL Take by mouth. cyanocobalamin (VITAMIN B-12) 1,000 mcg tab Take 1,000 mcg by mouth once daily. L. acidophilus-L. rhamnosus 15 billion cell cap Take 1 capsule by mouth once daily. If taking with an antibiotic, take at least 1-2 hours before or after antibiotic. KEEP REFRIGERATED OMEGA-3S/DHA/EPA/FISH OIL (OMEGA 3 ORAL) Take 1 capsule by mouth as needed. CALCIUM 100 MG CAP Take one(1) tablet daily. MULTIVITAMIN TABLET Take one(1) tablet daily. doxycycline (VIBRA-TABS) 100 mg tablet Take 1 tablet by mouth two times a day for 14 days. mupirocin (BACTROBAN) 2 % ointment Apply to affected area three times a day for 10 days. escitalopram oxalate (LEXAPRO) 5 mg tablet Take 5 mg by mouth once daily. (Patient not taking: Reported on 07/09/2023) hydrOXYzine HCl (ATARAX) 25 mg tablet Take 25 mg by mouth three times daily as needed. (Patient not taking: Reported on 07/09/2023) LORazepam (ATIVAN) 1 mg tablet Take 1 mg by mouth as needed. (Patient not taking: Reported on 07/09/2023) FAMILY HISTORY Problem Relation Age of Onset Stroke Mother other (Parkinson's) Father Diabetes Maternal Grandmother Social History Tobacco Use Smoking status: Never Smokeless tobacco: Never Vaping Use Vaping Use: Never used Substance Use Topics Alcohol use: No Drug use: No ASSESSMENT/PLAN: 1. Tick bite of right thigh, initial encounter - ICD9: 916.4, E906.4, ICD10: S70.361A, W57.XXXA (primary diagnosis) - DOXYCYCLINE HYCLATE 100 MG TABLET - MUPIROCIN 2 % TOPICAL OINTMENT 2. Puncture wound - ICD9: 879.8, ICD10: T14.8XXA Was removed successfully with tick removing tool. Patient tolerated well. Tick was intact. She was educated about proper use of medication and supportive therapies. Patient will follow-up if signs and symptoms seem to be getting worse not better. Patient is okay with this care plan. Destinee Fields APRN.SEVERITY OF ILLNESS COORDINATOR Allergies As of Date: 07/09/2023 Noted Allergy Reaction HOUSE DUST 07/09/2023 14 - Other: See Comments Comments: pollen Date Reviewed: 07/09/2023 Reviewed by: Sarah Maloney - Fully Assessed Reason for Visit: Trauma [112] Cmt: Tick in right buttocks x1 day Primary Visit Diagnosis:Tick bite of right thigh, initial encounter [S70.361A, W57.XXXA] Other Visit Diagnosis:Puncture wound [T14.8XXA] Order(s):doxycycline (VIBRA-TABS) 100 mg tabletTake 1 tablet by mouth two times a day for 14 days.Disp: 20 tabletRfl: 0 mupirocin (BACTROBAN) 2 % ointmentApply to affected area three times a day for 10 days.Disp: 15 gRfl: 0 Prescriptions as of 07/09/2023 - doxycycline (VIBRA-TABS) 100 mg tablet Take 1 tablet by mouth two times a day for 14 days. - mupirocin (BACTROBAN) 2 % ointment Apply to affected area three times a day for 10 days. - escitalopram oxalate (LEXAPRO) 5 mg tablet Take 5 mg by mouth once daily. - hydrOXYzine HCl (ATARAX) 25 mg tablet Take 25 mg by mouth three times daily as needed. - LORazepam (ATIVAN) 1 mg tablet Take 1 mg by mouth as needed. - traZODone (DESYREL) 50 mg tablet TAKE 1/2 (ONE-HALF) TO 1 (ONE) TABLET AT BEDTIME NEEDED FOR SLEEP - ZINC ACETATE ORAL Take by mouth. - cyanocobalamin (VITAMIN B-12) 1,000 mcg tab Take 1,000 mcg by mouth once daily. - L. acidophilus-L. rhamnosus 15 billion cell cap Take 1 capsule by mo (more content not included)... Normal [facility] LAURA SCREENINGon 04-23-2022 [facility] Vital Signs Date Time Vital Sign Value Performing Clinician Amalia christianson 07-09-2023 17:20-0400 Body temperature 97.9 [degF] Destinee Fields APRN.SEVERITY OF ILLNESS COORDINATOR Work Phone: [facility] 07-09-2023 17:20-0400 Body weight 60.4 kg Destinee Fields APRN.SEVERITY OF ILLNESS COORDINATOR Work Phone: [facility] 07-09-2023 17:20-0400 Diastolic blood pressure 68 mm[Hg] Destinee Fields APRN.SEVERITY OF ILLNESS COORDINATOR Work Phone: [facility] 07-09-2023 17:20-0400 Heart rate 62 /min Destinee Fields APRN.SEVERITY OF ILLNESS COORDINATOR Work Phone: [facility] 07-09-2023 17:20-0400 Respiratory rate 16 /min Destinee Fields APRN.SEVERITY OF ILLNESS COORDINATOR Work Phone: [facility] 07-09-2023 17:20-0400 SaO2% (BldA) [Mass fraction] 98 % Destinee Fields APRN.SEVERITY OF ILLNESS COORDINATOR Work Phone: [facility] 07-09-2023 17:20-0400 Systolic blood pressure 112 mm[Hg] Destinee Fields APRN.SEVERITY OF ILLNESS COORDINATOR Work Phone: [facility] 01-07-2022 19:47-0400 Body temperature 97.9 [degF] Artemio Montenegro SLIDE MACHINE TENDER.SEVERITY OF ILLNESS COORDINATOR Work Phone: [facility] 01-07-2022 19:47-0400 Body weight 54.34 kg Artemio Montenegro SLIDE MACHINE TENDER.SEVERITY OF ILLNESS COORDINATOR Work Phone: [facility] 01-07-2022 19:47-0400 Diastolic blood pressure 70 mm[Hg] Artemio Montenegro SLIDE MACHINE TENDER.SEVERITY OF ILLNESS COORDINATOR Work Phone: [facility] 01-07-2022 19:47-0400 Heart rate 79 /min Artemio Montenegro SLIDE MACHINE TENDER.SEVERITY OF ILLNESS COORDINATOR Work Phone: [facility] 01-07-2022 19:47-0400 Respiratory rate 18 /min Artemiofiordaliza Montenegro SLIDE MACHINE TENDER.SEVERITY OF ILLNESS COORDINATOR Work Phone: [facility] 01-07-2022 19:47-0400 SaO2% (BldA) [Mass fraction] 98 % Artemio Lan SLIDE MACHINE TENDER.SEVERITY OF ILLNESS COORDINATOR Work Phone: [facility] 01-07-2022 19:47-0400 Systolic blood pressure 112 mm[Hg] Artemio Montenegro SLIDE MACHINE TENDER.SEVERITY OF ILLNESS COORDINATOR Work Phone: [facility] Encounters Encounter Date Encounter Type Care Provider Facility Start: 07-09-2023 End: 07-09-2023 ambulatory MARIA FERNANDA STARR Facility:[facility] Start: 07-09-2023 End: 07-09-2023 Patient encounter procedure Destinee Fields APRN.SEVERITY OF ILLNESS COORDINATOR Work Phone: [facility] Comment on above: Tick bite of right t high, initial encounter (Primary Dx); Puncture wound Start: 04-24-2022 Documentation procedure Mammog shashank Coordinator [facility] Start: 04-24-2022 Letter encounter Mammography Coordinator [facility] Department Start: 04-23-2022 End: 04-23-2022 Subsequent hospital visit by physician Screen Mammo [facility] Comment on above: Visit for screening mammogram [Z12.31] Start: 04-09-2022 Orders Only Catherine ORTEGA RN.SEVERITY OF ILLNESS COORDINATOR Work Phone: [facility] Comment on above: Visit for screening mammogram (Primary Dx) Start: 01-07-2022 End: 01-07-2022 Patient encounter procedure Artemio Montenegro APRN.SEVERITY OF ILLNESS COORDINATOR Work Phone: [facility] Comment on above: Tick bite, unspecifi ed site, initial encounter (Primary Dx) Procedures Date Procedure Procedure Detail Performing Clinician Start: 04-23-2022 End: 04-23-2022 Mammography Catherine Moreno APRN.SEVERITY OF ILLNESS COORDINATOR Work Phone: Start: 03-05-2021 Mammography Artemio coon APRN.SEVERITY OF ILLNESS COORDINATOR Work Phone: Start: 11-30-2014 Lipid 1996 panel - S christian or Plasma Screen Wstr Plan of Treatment Date Care Activity Detail Author Start: 11-28-2023 Influenza vaccination Influenz a Vaccine (Season Ended) [facility] Start: 04-23-2023 Mammography [facility] Start: 04-23-2023 Screening for malign ant neoplasm of breast Mammogram Screening [facility] Start: 03-29-2023 Behavioral Health Screening Behavioral Health Screening [facility] Start: 11-27-2022 Covid-19 Vaccine ( season) Covid-19 Vaccine ( season) [facility] Start: 11-27-2022 Influenza vaccination Influenza Vacc ine (#1) [facility] Start: 2022 RSV Vaccine (1 - 1-d ose 60+ series) RSV Vaccine (1 - 1-dose 60+ series) [facility] Start: 04-28-2022 HPV TESTING HPV TESTING [facility] Start: 04-28-2022 PAP TESTING PAP TESTING [facility] Start: 04-28-2022 Screening for malign ant neoplasm of cervix [facility] Start: 03-29-2022 [facility] Start: 03-05-2022 Mammography MAMMOGRAM [facility] Start: 11-27-2021 Influenza vaccination INFLUENZA (#1) [facility] Start: 03-29-2021 DEPRESSION ASSESSMENT [facility] Start: 12-01-2019 Lipid 1996 panel - S hcristian or Plasma Lipid Screening [facility] Start: 12-01-2019 Lipid panel Lipid Screening [facility] Start: 12-01-2019 LIPID SCREEN LIPID SCREEN [facility] Start: 09-29-2019 Urine microalbumin profile [facility] Start: 11-30-2017 DIABETES SCREEN DIABETES SCREEN [facility] Start: 11-30-2017 Diabetes Screening Diabetes Screenin g [facility] Start: 2012 SHINGRIX VACCINE (1 of 2) SHINGRIX VACCINE (1 of 2) [facility] Start: 11-17-2007 COLOGUARD (FIT-DNA) COLOGUARD (FIT-D NA) [facility] Start: 11-17-2007 Colonoscopy COLONOSCOPY [facility] Start: 11-17-2007 COLORECTAL CANCER SCREENING COLORECTAL CANCER SCREENING [facility] Start: 11-17-[address] COLONOGRAPHY [facility] Start: 11-17-2007 FECAL OCCULT BLOOD FECAL OCCULT BLOO D [facility] Start: 11-17-2007 Screening for malign ant neoplasm of colon [facility] Start: 11-17-2007 SIGMOIDOSCOPY SIGMOIDOSCOPY [facility] Start: 1980 HEPATITIS C SCREENING HEPATITIS C [facility] Start: 1980 Hepatitis C screening Hepatitis C [facility] Start: 1980 HIV SCREENING HIV SCREENING [facility] Start: 1980 HIV screening HIV Screening [facility] Start: 05-19-1963 COVID-19 VACCINE (#1) COVID-19 VACCI NE (#1) [facility] LAURA SCREENING LAURA SCREENING Ra diology Routine Visit for screening mammogram Ordered: 04/09/2022 [facility] Work Phone: Comment on above: [facility] Immunization Date Immunization Notes Care Provider Rei payne 09-28-2009 tetanus toxoid, reduced diphtheria toxoid, and acellular pertussis vaccine, adsorbed Artemio Montenegro SLIDE MACHINE TENDER.[facility] Work Phone: [facility] Work Phone: Payers Date Payer Category Payer Unknown [id number] 2018 Unknown [id number] Social History Date Type Detail Facility Start: 01-07-2022 Tobacco smoking stat us SDIS Never smoked tobacco [facility] Start: 01-07-2022 Tobacco use and exposure Smoke less tobacco non-user [facility] Start: 01-07-2022 End: 07-09-2023 Alcohol intake Current non-drinker of alcohol (finding) [facility] Start: 02-29-2020 History SDOH Social Connections Phone 4 [facility] Start: 02-29-2020 History SDOH Social Connections Get Together 3 [facility] Start: 02-29-2020 History SDOH Social Connections Membership 2 [facility] Start: 02-29-2020 History SDOH Social Connections Meetings 1 [facility] Start: 02-29-2020 History SDOH Financial 5 [facility] Start: 02-29-2020 Education 13 [facility] Start: 1960 Sex Assigned At Not on file C [facility] Start: 02-29-2020 End: 03-04-2020 History of Social function [facility] Work Phone: Start: 02-29-2020 End: 03-04-2020 Social connection and isolation panel [facility] Work Phone: Do you belong to any clubs or organizations such as yazidi groups, unions, fraternal or athletic groups, or school groups? No [facility] Work Phone: Are you now , , , , never or living with a partner? [facility] Work Phone: How hard is it for y ou to pay for the very basics like food, housing, medical care, and heating Not hard at all [facility] Work Phone: Do you feel stress - tense, restless, nervous, or anxious, or unable to sleep at night because your mind is troubled all the time - these days [OSQ] Only a little [facility] Work Phone: (I/We) worried wheth er (my/our) food would run out before (I/we) got money to buy more. Never true [facility] Work Phone: Clinical Notes 02-15-2012 to 07-09-2023 Destinee Fields APRN.SEVERITY OF ILLNESS COORDINATOR - 07/09/2023 5:33 PM Axel - Mammography Coordinator - 04/24/2022 11:18 AM Simran Adair RT(Jamar) - 04/23/2022 2:30 PM EST Note Date & Type Note Facility 07-09-2023 Note HNO ID: [id number] Author: DESTINEE FIELDS APRN.SEVERITY OF ILLNESS COORDINATOR Service: ? Author Type: Nurse Practitioner Type: Progress Notes Filed: 07/09/2023 17:38 Note Text: Subjective Female with complaints of possible tick stuck to right buttock. Patient says she is not sure how long she has had it there. Patient denies any other symptoms associated with this. The history is provided by the patient. No specialized language instructor was used. Trauma Review of Systems Constitutional: Negative. Skin: Negative. Objective Physical Exam Constitutional: Appearance: Normal appearance. Pulmonary: Effort: Pulmonary effort is normal. Skin: Comments: engorged adult tick located in the area marked above. Significant tissue degradation noted at site. Neurological: Mental Status: She is alert. PAST MEDICAL HISTORY Diagnosis Date Allergic rhinitis, cause unspecified environmental Encounter for screening colonoscopy 2016 Female infertility of unspecified origin primary Hypothyroidism 02/15/2012 Was low in the past; TSH checked 2014 was within normal range at 3.320 PAST SURGICAL HISTORY Procedure Laterality Date TONSILLECTOMY PRIMARY/SECONDARY AGE 14/> Tonsillectomy ALLERGIES House Dust MEDICATIONS traZODone (DESYREL) 50 mg tablet TAKE 1/2 (ONE-HALF) TO 1 (ONE) TABLET AT BEDTIME NEEDED FOR SLEEP ZINC ACETATE ORAL Take by mouth. cyanocobalamin (VITAMIN B-12) 1,000 mcg tab Take 1,000 mcg by mouth once daily. L. acidophilus-L. rhamnosus 15 billion cell cap Take 1 capsule by mouth once daily. If taking with an antibiotic, take at least 1-2 hours before or after antibiotic. KEEP REFRIGERATED OMEGA-3S/DHA/EPA/FISH OIL (OMEGA 3 ORAL) Take 1 capsule by mouth as needed. CALCIUM 100 MG CAP Take one(1) tablet daily. MULTIVITAMIN TABLET Take one(1) tablet daily. doxycycline (VIBRA-TABS) 100 mg tablet Take 1 tablet by mouth two times a day for 14 days. mupirocin (BACTROBAN) 2 % ointment Apply to affected area three times a day for 10 days. escitalopram oxalate (LEXAPRO) 5 mg tablet Take 5 mg by mouth once daily. (Patient not taking: Reported on 07/09/2023) hydrOXYzine HCl (ATARAX) 25 mg tablet Take 25 mg by mouth three times daily as needed. (Patient not taking: Reported on 07/09/2023) LORazepam (ATIVAN) 1 mg tablet Take 1 mg by mouth as needed. (Patient not taking: Reported on 07/09/2023) FAMILY HISTORY Problem Relation Age of Onset Stroke Mother other (Parkinson's) Father Diabetes Maternal Grandmother Social History Tobacco Use Smoking status: Never Smokeless tobacco: Never Vaping Use Vaping Use: Never used Substance Use Topics Alcohol use: No Drug use: No ASSESSMENT/PLAN: 1. Tick bite of right thigh, initial encounter - ICD9: 916.4, E906.4, ICD10: S70.361A, W57.XXXA (primary diagnosis) - DOXYCYCLINE HYCLATE 100 MG TABLET - MUPIROCIN 2 % TOPICAL OINTMENT 2. Puncture wound - ICD9: 879.8, ICD10: T14.8XXA Was removed successfully with tick removing tool. Patient tolerated well. Tick was intact. She was educated about proper use of medication and supportive therapies. Patient will follow-up if signs and symptoms seem to be getting worse not better. Patient is okay with this care plan. Destinee Fields APRN.[facility] 07-09-2023 History of Presen t illness Narrative Images from the original note were not included. Subjective Female with complaints of possible tick stuck to right buttock. Patient says she is not sure how long she has had it there. Patient denies any other symptoms associated with this. The history is provided by the patient. No specialized language instructor was used. Trauma Review of Systems Constitutional: Negative. Skin: Negative. Objective Physical Exam Constitutional: Appearance: Normal appearance. Pulmonary: Effort: Pulmonary effort is normal. Skin: Comments: engorged adult tick located in the area marked above. Significant tissue degradation noted at site. Neurological: Mental Status: She is alert. PAST MEDICAL HISTORY Diagnosis Date Allergic rhinitis, cause unspecified environmental Encounter for screening colonoscopy 2016 Female infertility of unspecified origin primary Hypothyroidism 02/15/2012 Was low in the past; TSH checked 2014 was within normal range at 3.320 PAST SURGICAL HISTORY Procedure Laterality Date TONSILLECTOMY PRIMARY/SECONDARY AGE 14/> Tonsillectomy ALLERGIES House Dust MEDICATIONS traZODone (DESYREL) 50 mg tablet TAKE 1/2 (ONE-HALF) TO 1 (ONE) TABLET AT BEDTIME NEEDED FOR SLEEP ZINC ACETATE ORAL Take by mouth. cyanocobalamin (VITAMIN B-12) 1,000 mcg tab Take 1,000 mcg by mouth once daily. L. acidophilus-L. rhamnosus 15 billion cell cap Take 1 capsule by mouth once daily. If taking with an antibiotic, take at least 1-2 hours before or after antibiotic. KEEP REFRIGERATED OMEGA-3S/DHA/EPA/FISH OIL (OMEGA 3 ORAL) Take 1 capsule by mouth as needed. CALCIUM 100 MG CAP Take one(1) tablet daily. MULTIVITAMIN TABLET Take one(1) tablet daily. doxycycline (VIBRA-TABS) 100 mg tablet Take 1 tablet by mouth two times a day for 14 days. mupirocin (BACTROBAN) 2 % ointment Apply to affected area three times a day for 10 days. escitalopram oxalate (LEXAPRO) 5 mg tablet Take 5 mg by mouth once daily. (Patient not taking: Reported on 07/09/2023) hydrOXYzine HCl (ATARAX) 25 mg tablet Take 25 mg by mouth three times daily as needed. (Patient not taking: Reported on 07/09/2023) LORazepam (ATIVAN) 1 mg tablet Take 1 mg by mouth as needed. (Patient not taking: Reported on 07/09/2023) FAMILY HISTORY Problem Relation Age of Onset Stroke Mother other (Parkinson's) Father Diabetes Maternal Grandmother Social History Tobacco Use Smoking status: Never Smokeless tobacco: Never Vaping Use Vaping Use: Never used Substance Use Topics Alcohol use: No Drug use: No ASSESSMENT/PLAN: 1. Tick bite of right thigh, initial encounter - ICD9: 916.4, E906.4, ICD10: S70.361A, W57.XXXA (primary diagnosis) - DOXYCYCLINE HYCLATE 100 MG TABLET - MUPIROCIN 2 % TOPICAL OINTMENT 2. Puncture wound - ICD9: 879.8, ICD10: T14.8XXA Was removed successfully with tick removing tool. Patient tolerated well. Tick was intact. She was educated about proper use of medication and supportive therapies. Patient will follow-up if signs and symptoms seem to be getting worse not better. Patient is okay with this care plan. Destinee Fields APRN.CNP documented in this encounter [facility] 04-24-2022 Miscellaneous Notes April 27, 2022 PID: [id number] Mari Lerma [address] [place] [address] Dear Ms. Lerma, We are pleased to inform you that the results of your recent breast imaging exam on 04/23/2022 are normal. Your mammogram demonstrates that you have dense breast tissue, which could hide abnormalities. Dense breast tissue, in and of itself, is a relatively common condition. Therefore, this information is not provided to cause undue concern; rather, it is to raise your awareness and promote discussion with your health care provider regarding the presence of dense breast tissue in addition to other risk factors. Early detection of cancer is very important. We also understand recommendations regarding breast cancer screening are controversial. Please discuss with your primary care provider which strategy is best for you and whether a mammogram is right for you. Your imaging studies and report will be kept on file at [facility] as part of your permanent medical record and are available for your continuing care. Thank you for allowing us to help in meeting your health care needs. Sincerely, Dr. Read Interpreting Radiologist [facility] (Normal over 40) documented in this encounter [facility] 04-23-2022 History of Presen t illness Narrative Radiology Service Progress Note PATIENT NAME: Mari Lerma DATE OF SERVICE: April 23, 2022 TIME: 2:48 PM PATIENT IDENTITY VERIFICATION COMPLETED USING TWO (2) IDENTIFIERS: Name and Date of confirmed by patient verbally. FALL SCREENING: Has the patient had 2 falls in the last year or 1 fall with injury or currently using an Ambulatory Assistive Device (Walker, Cane, Wheelchair, Crutches, etc.)? No PATIENT GENDER DATA: Female. status: : No status: NO. PATIENT RELEVANT IMPLANT DATA REVIEWED: Not Applicable RADIOLOGY DEPARTMENT: Mammography PERIPHERAL IV DATA: Not applicable SIGNED BY: RT Radhames(R) April 23, 2022 2:48 PM documented in this encounter [facility] 01-07-2022 History of Presen t illness Narrative Images from the original note were not included. Subjective HPI Nontoxic-appearing female presents urgent care chief complaint tick bite. Duration of symptoms 1 day. Associated symptoms tick bite right buttocks. Patient states first noticed this tonight. Has not tried to remove tick. No OTC medications. Denies any fever body aches chills nausea vomiting abdominal pain. Past medical history prescription medication use allergies reviewed. .Patient presents with: Insect Bite: Tick bite R buttocks x today PAST MEDICAL HISTORY Diagnosis Date Allergic rhinitis, cause unspecified environmental Encounter for screening colonoscopy 2016 Female infertility of unspecified origin primary Hypothyroidism 02/15/2012 Was low in the past; TSH checked 2014 was within normal range at 3.320 PAST SURGICAL HISTORY Procedure Laterality Date TONSILLECTOMY PRIMARY/SECONDARY AGE 14/> Tonsillectomy ALLERGIES Environmental [Other] MEDICATIONS ZINC ACETATE ORAL Take by mouth. cyanocobalamin (VITAMIN B-12) 1,000 mcg tab Take 1,000 mcg by mouth once daily. L. acidophilus-L. rhamnosus 15 billion cell cap Take 1 capsule by mouth once daily. If taking with an antibiotic, take at least 1-2 hours before or after antibiotic. KEEP REFRIGERATED OMEGA-3S/DHA/EPA/FISH OIL (OMEGA 3 ORAL) Take 1 capsule by mouth as needed. CALCIUM 100 MG CAP Take one(1) tablet daily. MULTIVITAMIN TABLET Take one(1) tablet daily. FAMILY HISTORY Problem Relation Age of Onset Stroke Mother other (Parkinson's) Father Diabetes Maternal Grandmother Social History Tobacco Use Smoking status: Never Smokeless tobacco: Never Vaping Use Vaping Use: Never used Substance Use Topics Alcohol use: No Drug use: No BP 112/70 Pulse 79 Temp 36.6 C (97.9 F) Resp 18 Wt 54.3 kg (119 lb 12.8 oz) LMP 08/13/2014 SpO2 98% BMI 19.48 kg/m Review of Systems Constitutional: Negative for chills, fever and malaise/fatigue. HENT: Negative for congestion, ear discharge, ear pain, sinus pain and sore throat. Eyes: Negative for blurred vision, pain, discharge and redness. Respiratory: Negative for cough, hemoptysis, sputum production, shortness of breath, wheezing and stridor. Cardiovascular: Negative for chest pain. Gastrointestinal: Negative for abdominal pain, diarrhea, nausea and vomiting. Musculoskeletal: Negative for myalgias. Skin: Negative for itching and rash. Neurological: Negative for dizziness and headaches. Objective Physical Exam Constitutional: General: She is not in acute distress. Appearance: She is not diaphoretic. HENT: Head: Normocephalic. Eyes: Conjunctiva/sclera: Conjunctivae normal. Pupils: Pupils are equal, round, and reactive to light. Cardiovascular: Rate and Rhythm: Normal rate and regular rhythm. Heart sounds: Normal heart sounds. Pulmonary: Effort: Pulmonary effort is normal. No tachypnea, accessory muscle usage or respiratory distress. Breath sounds: Normal breath sounds. No stridor. Abdominal: Palpations: Abdomen is soft. Tenderness: There is no abdominal tenderness. Musculoskeletal: Cervical back: Normal range of motion and neck supple. No rigidity or tenderness. Lymphadenopathy: Cervical: No cervical adenopathy. Skin: General: Skin is warm and dry. Comments: Tick noted highlighted area. Area was cleansed with alcohol. Tick was removed with tweezers. Patient tolerated well. Neurological: Mental Status: She is alert and oriented to person, place, and time. ASSESSMENT/PLAN: 1. Tick bite, unspecified site, initial encounter - ICD9: 919.4, E906.4, ICD10: W57.XXXA Patient diagnosed with tick bite. Will be placed on doxycycline prophylactic dose. Patient was educated on supportive therapies. Patient will follow up with primary care provider as needed. Patient was instructed to immediately proceed to emergency room for any new, worsening, or symptoms lasting longer than anticipated. The patient's clinical presentation is otherwise unremarkable at this time. Based on exam and clinical finding, the patient is stable for discharge. Plan of care was discussed with patient. Patient verbalizes understanding and agrees to plan of care. This note was generated using [employer] software. It may contain errors in wording, punctuation, or spelling. Artemio Montenegro APRN.[facility] documented in this encounter [facility] 02-15-2012 History of Past i llness Narrative Problem Noted Date Resolved Date Hypothyroidism 02/15/2012 03/27/2015 documented as of this encounter (statuses as of 01/08/2022) [facility] History of Past illness Narrative* Problem Noted Date Resolved Date Hypothyroidism 02/15/2012 03/27/2015 documented as of this encounter (statuses as of 04/09/2022) [facility] History of Past illness Narrative* Problem Noted Date Resolved Date Hypothyroidism 02/15/2012 03/27/2015 documented as of this encounter (statuses as of 04/28/2022) [facility] History of Past illness Narrative* Problem Noted Date Diagnosed Date Resolved Date Hypothyroidism 02/15/2012 03/27/2015 documented as of this encounter (statuses as of 01/31/2023) [facility] History of Past illness Narrative* Problem Noted Date Diagnosed Date Resolved Date Hypothyroidism 02/15/2012 03/27/2015 documented as of this encounter (statuses as of 07/09/2023) [facility] [place] [facility] Diagnosis Tick bite, unspecified site, initial encounter- Primary [facility] [place] [facility] Diagnosis Visit for screening mammogram- Primary Other screening mammogram [facility] [place] [facility] Diagnosis Tick bite of right thigh, initial encounter- Primary Puncture wound Open wound(s) (multiple) of unspecified site(s), without mention of complication documented in this encounter [facility] for referral (narrative)* Diagnostic Procedure Only (Routine) - Pending Review Specialty Diagnoses / Procedures Referred By Tucker burris Referred To Contact [facility] Diagnoses Visit for screening mammogram Procedures LAURA SCREENING SCREENING MAMMOGRAPHY BI 2-VIEW BREAST INC Catherine Lai APRN.CNP [address] [place] [address] [facility] [address] [place] [address] Referral ID Status Reason Start Date Expiration Date Visits Requested Visits Authorized [id number] Pending Review Auto-Generat ed Referral 04/09/2022 05/09/2023 1 1 I [facility] for visit Narrative* Diagnostic Procedure Only (Routine) - Closed Specialty Diagnoses / Procedures Referred By Tucker burris Referred To Contact [facility] Diagnoses Visit for screening mammogram Procedures LAURA SCREENING SCREENING MAMMOGRAPHY BI 2-VIEW BREAST INC Catherine Lai APRN.CNP [address] [place] [address] [facility] [address] [place] [address] Referral ID Status Reason Start Date Expiration Date V isits Requested Visits Authorized [id number] Closed Auto-Generate d Referral 04/09/2022 05/09/2023 1 1 [facility] Summary Purpose Family History No Family History Records Found Advance Directives No Advanced Directives Records Found Additional Source Comments Source Comments (unrecognize d section and content) In the event this informatio n is protected by the Federal Confidentiality of Alcohol and Drug Abuse Patient Records regulations: The Federal rules restrict any use of the information to criminally investigate or prosecute any alcohol or drug abuse patient.[facility] event this information is protected by the Federal Confidentiality of Alcohol and Drug Abuse Patient Records regulations: The Federal rules restrict any use of the information to criminally investigate or prosecute any alcohol or drug abuse patient.[facility] the event this information is protected by the Federal Confidentiality of Alcohol and Drug Abuse Patient Records regulations: The Federal rules restrict any use of the information to criminally investigate or prosecute any alcohol or drug abuse patient.[facility] the event this information is protected by the Federal Confidentiality of Alcohol and Drug Abuse Patient Records regulations: The Federal rules restrict any use of the information to criminally investigate or prosecute any alcohol or drug abuse patient.[facility] the event this information is protected by the Federal Confidentiality of Alcohol and Drug Abuse Patient Records regulations: The Federal rules restrict any use of the information to criminally investigate or prosecute any alcohol or drug abuse patient.[facility] Reason for Visit (unrecogniz ed section and content) Reason Comments Insect Bite Tick bite R buttocks x today Reason Comments Trauma Tick in right buttoc ks x1 day Care Teams (unrecognized sec tion and content) [employer] Equipment Operator Relationship Specialty Start Date End Date Maria Fernanda Starr MD [address] [place], [place] [id number] PCP - General Family Medicine 04/29/18 [employer] Equipment Operator Relationship Specialty Start Date End Date Maria Fernanda Starr MD [address] [place] [address] PCP - General Family Medicine 04/29/18 [employer] Equipment Operator Relationship Specialty Start Date End Date Maria Fernanda Starr MD [address] [place], [place] [id number] PCP - General Family Medicine 04/29/18 [employer] Equipment Operator Relationship Specialty Start Date End Date Maria Fernanda Starr MD [address] [facility] [place], [place] [address] PCP - General Family Medicine 04/29/18 INFORMATION SOURCE (unrecogn ized section and content) DATE CREATED AUTHOR 07/11/2023 [facility] FOR RECORDS PERTAINING TO PATIENTS WHO ARE OR HAVE BEEN ENROLLED IN A CHEMICAL DEPENDENCY/SUBSTANCEABUSE PROGRAM, SOME INFORMATION MAY BE OMITTED. This clinical summary was aggregated from multiple sources. Caution should be exercised in using it in the provision of clinical care. This summary normalizes information from multiple sources, and as a consequence, information in this document may materially change the coding, format and clinical context of patient data. In addition, data may be omitted in some cases. CLINICAL DECISIONS SHOULD BE BASED ON THE PRIMARY CLINICAL RECORDS. [employer] provides no warranty or guarantee of the accuracy or completeness of information in this document.
== END 2024-01-15 18:07 | disposition home or self-care (01) ==
LOC: ED 17:54
PROVIDERS: Emergency Provider Emergency Medicine; PCP Family Medicine; Visit Provider Emergency Medicine
DX: S10.96XA Insect bite of unspecified part of neck, initial encounter (principal); W57.XXXA Bitten or stung by nonvenomous insect and other nonvenomous arthropods, initial encounter; Y93.01 Activity, walking, marching and hiking; Y92.821 Forest as the place of occurrence of the external cause
CPT/HCPCS: 99282

== ENCOUNTER → 2024-08-09 | Outpatient (CLI) | payer OTHER, SELFPAY ==
--- NOTE | 2024-08-09 08:40 | BI_ITS ---
EXAM: SCRN MAMM (CAD)W/VANESSA BILAT 08/09/2024 CLINICAL HISTORY: F, Age 63 y/o , ANNUAL TECHNIQUE: Bilateral screening digital breast tomosynthesis with 2D and 3D images. Computer aided detection. COMPARISON: Prior exam(s) dated 08/11/2023, 08/04/2023, 04/23/2022. FINDINGS: TISSUE DENSITY: The breast tissue is extremely dense which lowers the sensitivity of mammography. The mammogram demonstrates that the patient has dense breasts. Supplemental screening with whole breast ultrasound or MRI may be considered for further evaluation. Bilateral Breast Mammographic Findings: No significant masses, calcifications or other abnormalities are identified. BI/SCRN MAMM (CAD)W/VANESSA BILAT IMPRESSION: Right Breast: BIRADS 1 NEGATIVE. Left Breast: BIRADS 1 NEGATIVE. OVERALL FINAL ASSESSMENT: BIRADS 1 NEGATIVE. RECOMMENDATION: Routine annual follow-up in 1 Year A letter with findings and recommendations will be mailed to the patient. Reading Location: [id number]
== END | disposition home or self-care (01) ==
LOC: OPBI 08:39
PROVIDERS: PCP Family Medicine; Referring Provider Family Medicine; Visit Provider Family Medicine
DX: Z12.31 Encounter for screening mammogram for malignant neoplasm of breast (principal)
CPT/HCPCS: 77063; 77067

== ENCOUNTER 2024-08-31 20:35 | Emergency (ER) | payer OTHER, SELFPAY ==
[2024-08-31 20:36] VITALS: BP 111/77; PULSE 58; RESP 16; TEMP 36.6; O2SAT 100; BMI 19.8
--- NOTE | 2024-08-31 20:48 | EDS_ITS ---
HPI <LANA Murcia - Last Filed: 08/31/24 20:52> History of Present Illness Chief Complaint: Bite Narrative Narrative: 63-year-old female was walking around downtown today and this evening noticed a bump behind her right knee with a tick present. She states it was not there yesterday. She is otherwise asymptomatic. PFSH <LANA Murcia - Last Filed: 08/31/24 20:52> PFSH Medical History Panic disorder VEENA (generalized anxiety disorder) Home Medications ?Medication ?Instructions ?Recorded ?Last Taken ?Type NK 01/15/24 Unknown History Allergy/AdvReac Type Severity Reaction Status Date / Time house dust Allergy Mild Sneezing Verified 08/31/24 20:39 Family History Father Depression Surgical History Hx of tonsillectomy Social History Smoking Status: Never smoker alcohol intake: never substance use type: does not use ROS <LANA Murcia - Last Filed: 08/31/24 20:52> ROS ED ROS Narrative Constitutional: Negative for fever, chills, malaise. Skin: Positive for localized redness. Musc: Negative for joint pain. EXAM <LANA Murcia - Last Filed: 08/31/24 20:52> Physical Exam Narrative Exam Narrative: CONST: Patient sitting in no acute distress. EYES: Normal inspection. RESP: No respiratory distress, CTAB. CVS: Regular rate and rhythm, no murmur, no gallop. SKIN: Color normal, no rash, warm, dry, intact. EXTREMITIES: Small tick right posterior knee is not engorged. Very localized surrounding redness approximately the size of the dime. No lymphangitic streaking. 2+ DP pulses. NEURO: Alert and answering questions appropriately. PSYCH: Normal affect. Const Vital Signs: 08/31/24 20:36 08/31/24 21:38 Temperature 98 F 97.8 F Temperature Source Oral Pulse Rate 58 L 78 Respiratory Rate 16 16 Blood Pressure 111/77 99/61 Blood Pressure Mean 88 73 Pulse Ox 100 99 Oxygen Delivery Method Room Air <Dr. Thomas Barahona DO - Last Filed: 08/31/24 23:52> Physical Exam Const Vital Signs: 08/31/24 20:36 08/31/24 21:38 Temperature 98 F 97.8 F Temperature Source Oral Pulse Rate 58 L 78 Respiratory Rate 16 16 Blood Pressure 111/77 99/61 Blood Pressure Mean 88 73 Pulse Ox 100 99 Oxygen Delivery Method Room Air [facility] <LANA Murcia - Last Filed: 08/31/24 20:52> [facility] Narrative Medical decision making narrative: Patient noticed a tick behind her right knee today. It is not engorged and there is very localized surrounding redness. I remove the entire tech with needlepoint tweezers successfully. The area was cleansed. She was given single dose of doxycycline 200 mg and advised to monitor the area and follow-up with her primary care doctor. She was discharged in stable condition. <Dr. Thomas Barahona DO - Last Filed: 08/31/24 23:52> [facility] Narrative Medical decision making narrative: Patient noticed a tick behind her right knee today. It is not engorged and there is very localized surrounding redness. I remove the entire tech with needlepoint tweezers successfully. The area was cleansed. She was given single dose of doxycycline 200 mg and advised to monitor the area and follow-up with her primary care doctor. She was discharged in stable condition. Attending note: I have personally performed a face to face assessment of the patient and have reviewed the JOHN note. I personally made/approved the management plan and take responsibility for the patient management. I performed a substantive portion of the visit including all aspects of the following. My flynn findings include: Tick behind left knee noted after walking the town. She felt itchy and scratched and noticed something there. States walking on the sidewalk there are trees. 2 weeks ago removed to take. Exam posterior left knee after removal by product merchandiser reported nonengorged however there is dime sized erythema in the area. Due to erythema I will prophylactically give her dose doxycycline to her milligrams. Follow-up with her doctor. Discharge Plan Triage Chief Complaint: Bite Other Complaint: Wound ED Midlevel Provider: Lucrecia Jj ED Provider: Thomas Barahona Dx/Rx/DC Orders Clinical Impression: Tick bite of right lower leg Instructions: ED Tick Bite, Antibiotic Treatment Prescriptions: No Action NK Primary Care Provider: Mani Starr Referrals: Mani Starr MD [Primary Care Provider] - Activity Restrictions/Additional Instructions: Monitor the area and if you have spreading redness or red streaking or fever please see your primary care doctor. Print Language: Guamanian Disposition Disposition: Home, Self Care Discharge Date/Time: 08/31/24 21:40
[2024-08-31] MEDS: Doxycycline 100 MG CAPSULE 200 MG PO (21:35)
[2024-08-31 21:38] VITALS: BP 99/61; PULSE 78; RESP 16; TEMP 36.6; O2SAT 99
== END 2024-08-31 21:40 | disposition home or self-care (01) ==
LOC: ED 21:03
PROVIDERS: Emergency Provider Emergency Medicine; PCP Family Medicine; Referring Provider Emergency Medicine; Visit Provider Emergency Medicine
DX: S80.861A Insect bite (nonvenomous), right lower leg, initial encounter (principal); W57.XXXA Bitten or stung by nonvenomous insect and other nonvenomous arthropods, initial encounter; Y93.01 Activity, walking, marching and hiking
CPT/HCPCS: 99282

== ENCOUNTER → 2024-10-10 | Outpatient (CLI) | payer OTHER, SELFPAY ==
[2024-10-10 12:11] LABS: Hematocrit 41.0 % (37-47); Hemoglobin 13.7 g/dL (12.0-15.0); Immature Granulocytes Count 0.020 X10^3/uL (0.0-0.0); Mean Corp Hgb Conc 33.4 g/dL (32-36); Mean Corpuscular Volume 93.2 fL (81-99); Mean Platelet Vol. 10.6 fl (6.2-12.0); NRBC Flagged by Analyzer 0 % (0-5); Platelet Count 181 K/mm3 (150-450); RBC Distribution Width CV 12.8 % (11.6-14.6); RBC Distribution Width SD 44.0 fl (35.1-43.9); Red Blood Count 4.40 M/mm3 (4.2-5.4); White Blood Count 5.8 K/mm3 (4.4-11.0)
[2024-10-10 12:42] LABS: AST(SGOT) 27 U/L (<=31); Alanine Aminotransfer ALT/SGPT 25 U/L (<=34); Albumin, Serum 4.3 g/dL (3.4-4.8); Alkaline Phosphatase 97 U/L (35-104); Anion Gap 12 (5-15); BUN 13 mg/dL (4-19); BUN/Creat Ratio 18.3 RATIO (10-20); Calcium,Total 9.3 mg/dL (7.6-11.0); Carbon Dioxide 23.4 mmol/L (21.0-32.0); Chloride 103 mmol/L (98-108); Globulin 2.4 g/dL (2.2-4.2); Glucose 81 mg/dL (70-99); Potassium 3.8 mmol/L (3.3-5.1)
[2024-10-10 13:11] LABS: FOLATES,SERUM (FOLIC ACID) 39.20 ng/mL (4.60-34.80); Vitamin B12 2066 pg/mL (180-914)
[2024-10-11 18:08] LABS: Immunoglobulin A 99 mg/dL (87-352)
== END | disposition home or self-care (01) ==
LOC: MFPLAB 10:38
PROVIDERS: PCP Family Medicine; Referring Provider Family Medicine; Visit Provider Family Medicine
DX: R19.4 Change in bowel habit (principal); E03.9 Hypothyroidism, unspecified; E53.8 Deficiency of other specified B group vitamins
CPT/HCPCS: 36415; 80053; 82607; 82746; 82784; 83516; 84443; 85025; 86255

== ENCOUNTER → 2024-10-26 | Outpatient (CLI) | payer OTHER, SELFPAY ==
[2024-10-31 18:08] LABS: Egg, Whole <0.10 kU/L (Class 0); Mussels <0.10 kU/L (Class 0)
== END | disposition home or self-care (01) ==
LOC: MFPLAB 09:08
PROVIDERS: PCP Family Medicine; Referring Provider Family Medicine; Visit Provider Family Medicine
DX: E03.9 Hypothyroidism, unspecified (principal); R19.4 Change in bowel habit; E53.8 Deficiency of other specified B group vitamins
CPT/HCPCS: 83630; 86003; 86005; 87506